=== PATIENT | male | born 1965 | race Caucasian/White ===

== ENCOUNTER → 2017-01-26 | Outpatient (CLI) | payer MEDICAID ==
[~2017-01-26] MED LIST: TRAM50TA2 PO
--- NOTE | 2017-01-26 16:33 | Diagnostic Imaging Report ---
PROCEDURE: MRI right joint lower extremity without contrast. TECHNIQUE: Multiplanar, multisequence MR imaging of the right knee was performed without contrast. COMPARISON: None available. INDICATION: Knee pain. Prior trauma of the femur. FINDINGS: MENISCI Lateral meniscus: Complex tearing of the lateral meniscus with absence of the free edge and central one-third of the majority of the posterior horn and body. There is also likely an incomplete radial tear at the junction of the posterior horn and body. The residual lateral meniscus is extruded into the lateral gutter. Medial meniscus: Mild degenerative free edge fraying of the body and posterior horn of the medial meniscus. LIGAMENTS ACL: Intact. PCL: Intact. MCL: Intact. LCL: The lateral collateral ligamentous complex is intact. EXTENSOR MECHANISM The extensor mechanism is intact. CARTILAGE Medial compartment: Diffuse chondral wear/thinning throughout the medial compartment with a superimposed focus of full-thickness chondromalacia in the posterior weightbearing portion of the medial femoral condyle. Lateral compartment: Diffuse full-thickness chondral loss throughout weightbearing and non-weightbearing portion of the lateral femoral condyle and opposing tibial plateau. There is underlying subchondral sclerosis and bone marrow edema on both sides of the joint. Patellofemoral compartment: Partial-thickness chondral loss in the patella. No superimposed full-thickness chondromalacia. BONE Partially imaged intramedullary fixation nail with interlocking screws in the distal femur. Allowing for artifact, no evidence of acute fracture. No osteochondral lesion or osteonecrosis. SOFT TISSUE: Moderate-sized joint effusion with mild synovitis. A tiny Carbajal's cyst is present. IMPRESSION: 1. Severe osteoarthritis in the lateral compartment with diffuse full-thickness chondromalacia throughout the weightbearing and non-weightbearing surfaces. 2. Associated degenerative macerated tearing of the body and posterior horn of the lateral meniscus. The residual body of the lateral meniscus is extruded into the lateral gutter. Additionally, there may be a free edge flap of the lateral meniscus which is flipped/displaced into the superior aspect of the lateral gutter. 3. Partial-thickness chondral loss in the medial and patellofemoral compartments. There is a focus of full-thickness chondromalacia in the posterior weightbearing surface of the medial femoral condyle. 4. Moderate-sized knee joint effusion with mild synovitis. Dictated by: Dictated on workstation # [id number]
== END ==
LOC: RAD 15:16
PROVIDERS: ATTEND Nurse Practitioner
DX: M17.11 Unilateral primary osteoarthritis, right knee (principal); S83.271A Complex tear of lateral meniscus, current injury, right knee, initial encounter; M25.461 Effusion, right knee; X58.XXXA Exposure to other specified factors, initial encounter; Y99.8 Other external cause status
CPT/HCPCS: 73721

== ENCOUNTER → 2021-10-13 | Outpatient (CLI) | payer OTHER ==
--- NOTE | 2021-10-13 10:25 | Diagnostic Imaging Report ---
INDICATION: Fall. Back pain. COMPARISON: None FINDINGS: Frontal and lateral views of the lumbar spine were obtained. Alignment and vertebral heights are maintained. There is no fracture or destructive process. Multilevel degenerative disease is noted in the lumbar spine, greatest at L5-S1. Limited views of the abdomen demonstrate nonobstructive bowel gas pattern. Note is also made of moderate calcified aortic and bilateral common iliac atherosclerosis. IMPRESSION: 1. No acute fracture or dislocation of the lumbar spine. 2. Multilevel degenerative changes. Dictated by: Dictated on workstation # [id number]
--- NOTE | 2021-10-13 10:26 | Diagnostic Imaging Report ---
INDICATION: Right hip pain. Lower back pain. COMPARISON: None. FINDINGS: AP view of the pelvis and 2 dedicated radiographic views of the right hip were obtained. There is no fracture, dislocation, bone destruction, or radiopaque foreign body. The visualized pelvic osseous structures and the SI joints demonstrate no acute fracture or dislocation. Postsurgical changes of previous ORIF of the right femur are partially included. No unexpected radiopaque foreign bodies are seen. No osteolytic process is identified. The surrounding soft tissue structures are unremarkable. IMPRESSION: 1. No acute fracture or dislocation in the pelvis or right hip. Dictated by: Dictated on workstation # [id number]
== END ==
LOC: RAD 09:17
PROVIDERS: ATTEND Family Medicine
DX: Z02.71 Encounter for disability determination (principal); M47.816 Spondylosis without myelopathy or radiculopathy, lumbar region; W19.XXXA Unspecified fall, initial encounter
CPT/HCPCS: 72100

== ENCOUNTER 2021-10-26 15:48 | Observation (INO) | payer SELFPAY ==
[~2021-10-26] VITALS: Ht 177 cm; Wt 74.8 kg
[2021-10-26] MEDS ORDERED: ASPIRIN 81 MG CHEW (CHILDREN'S ASA) PO ONE (16:00)
--- NOTE | 2021-10-26 16:07 | ED Chest Pain ---
General Stated Complaint: CHEST PAIN Source: patient Exam Limitations: no limitations History of Present Illness Date Seen by Provider: Oct 26, 2021 Time Seen by Provider: 16:00 Initial Comments To ER by private [facility] with reports of chest pain. This is been waxing and waning over the past few weeks but it awakened him from sleep few nights ago. Has had slight shortness of breath with this. He does smoke 1/2 pack of cigarettes per day. He smokes methamphetamine a few times a week. Smokes marijuana daily. He has been off of all of his medications for a few days because he left them at a friend's house. Timing/Duration: changing over time Severity/Quality: moderate Location: central Prior CP/Workup: no prior chest pain Modifying Factors: improves with antacids ASA po NATURAL FABRICATOR: No NTG SL NATURAL FABRICATOR: No Associated Symptoms: denies symptoms Allergies and Home Medications Allergies Coded Allergies: No Known Drug Allergies (Unverified , 04/11/15) Patient Home Medication List Home Medication List Reviewed: Yes Tramadol Hcl (Tramadol Hcl) 50 Mg Tablet, 50 MG PO Q4H PRN for PAIN Prescribed by: AYDEE BOWERS on 04/11/15 1726 Review of Systems Review of Systems Constitutional: see HPI EENTM: No Symptoms Reported Respiratory: No Symptoms Reported Cardiovascular: See HPI, Chest Pain Gastrointestinal: No Symptoms Reported Genitourinary: No Symptoms Reported Musculoskeletal: no symptoms reported Psychiatric/Neurological: No Symptoms Reported Endocrine: No Symptoms Reported Hematologic/Lymphatic: No Symptoms Reported Past Jbhbgeg-Wgfdbu-Ydieeq Hx Past Medical History Orthopedic Reproductive Disorders: No Family Medical History No Pertinent Family Hx Physical Exam Vital Signs Vital Signs - First Documented 10/26/21 15:52 Temp 36.6 Pulse 100 Resp 18 B/P (MAP) 159/92 (114) Pulse Ox 96 O2 Delivery Room Air Capillary Refill : Height, Weight, BMI Height: 5'10" Weight: 150lbs. oz. [id number]; BMI Method:Stated General Appearance: No Apparent Distress, WD/WN HEENT: PERRL/EOMI, TMs Normal Respiratory: No Accessory Muscle Use, No Respiratory Distress Cardiovascular: Regular Rate, Rhythm, Normal Peripheral Pulses Gastrointestinal: Normal Bowel Sounds, Non Tender, Soft Neurologic/Psychiatric: Alert, Oriented x3 Skin: Normal Color, Warm/Dry Progress/Results/Core Measures Results/Orders Lab Results Laboratory Tests Test 10/26/21 15:59 10/26/21 16:11 Range/Units White Blood Count 14.3 H 4.3-11.0 10^3/uL Red Blood Count 4.97 4.30-5.52 10^6/uL Hemoglobin 15.0 13.3-17.7 g/dL Hematocrit 45 40-54 % Mean Corpuscular Volume 91 80-99 fL Mean Corpuscular Hemoglobin 30 25-34 pg Mean Corpuscular Hemoglobin Concent 33 32-36 g/dL Red Cell Distribution Width 13.2 10.0-14.5 % Platelet Count 422 H 130-400 10^3/uL Mean Platelet Volume 9.0 9.0-12.2 fL Immature Granulocyte % (Auto) 1 % Neutrophils (%) (Auto) 75 42-75 % Lymphocytes (%) (Auto) 17 12-44 % Monocytes (%) (Auto) 7 0-12 % Eosinophils (%) (Auto) 1 0-10 % Basophils (%) (Auto) 0 0-10 % Neutrophils # (Auto) 10.6 H 1.8-7.8 10^3/uL Lymphocytes # (Auto) 2.4 1.0-4.0 10^3/uL Monocytes # (Auto) 1.0 0.0-1.0 10^3/uL Eosinophils # (Auto) 0.1 0.0-0.3 10^3/uL Basophils # (Auto) 0.1 0.0-0.1 10^3/uL Immature Granulocyte # (Auto) 0.1 0.0-0.1 10^3/uL Neutrophils % (Manual) 67 % Lymphocytes % (Manual) 20 % Monocytes % (Manual) 12 % Eosinophils % (Manual) 1 % Blood Morphology Comment NORMAL Prothrombin Time 13.3 12.2-14.7 SEC INR Comment 1.0 0.8-1.4 Activated Partial Thromboplast Time 32 24-35 SEC Sodium Level 137 135-145 MMOL/L Potassium Level 4.0 3.6-5.0 MMOL/L Chloride Level 103 98-107 MMOL/L Carbon Dioxide Level 23 21-32 MMOL/L Anion Gap 11 5-14 MMOL/L Blood Urea Nitrogen 9 7-18 MG/DL Creatinine 0.75 0.60-1.30 MG/DL Estimat Glomerular Filtration Rate 107 BUN/Creatinine Ratio 12 Glucose Level 111 H 70-105 MG/DL Calcium Level 9.3 8.5-10.1 MG/DL Corrected Calcium 9.2 8.5-10.1 MG/DL Magnesium Level 2.0 1.6-2.4 MG/DL Total Bilirubin 0.5 0.1-1.0 MG/DL Aspartate Amino Transf (AST/SGOT) 24 5-34 U/L Alanine Aminotransferase (ALT/SGPT) 33 0-55 U/L Alkaline Phosphatase 90 40-136 U/L Myoglobin 46.4 10.0-92.0 NG/ML Troponin I 2.340 *H <0.028 NG/ML B-Type Natriuretic Peptide 162.2 H <100.0 PG/ML Total Protein 8.4 H 6.4-8.2 GM/DL Albumin 4.1 3.2-4.5 GM/DL Serum Alcohol < 10 <10 MG/DL Urine Color YELLOW Urine Clarity CLEAR Urine pH 6.5 5-9 Urine Specific [place] <=1.005 1.016-1.022 Urine Protein NEGATIVE NEGATIVE Urine Glucose (UA) NEGATIVE NEGATIVE Urine Ketones NEGATIVE NEGATIVE Urine Nitrite NEGATIVE NEGATIVE Urine Bilirubin NEGATIVE NEGATIVE Urine Urobilinogen 0.2 < = 1.0 MG/DL Urine Leukocyte Esterase TRACE H NEGATIVE Urine RBC (Auto) NEGATIVE NEGATIVE Urine RBC 0-2 /HPF Urine WBC 0-2 /HPF Urine Squamous Epithelial Cells 0-2 /HPF Urine Renal Epithelial Cells NONE /HPF Urine Crystals NONE /LPF Urine Bacteria NEGATIVE /HPF Urine Casts NONE /LPF Urine Mucus NEGATIVE /LPF Urine Culture Indicated NO Urine Opiates Screen NEGATIVE NEGATIVE Urine Oxycodone Screen NEGATIVE NEGATIVE Urine Methadone Screen NEGATIVE NEGATIVE Urine Propoxyphene Screen NEGATIVE NEGATIVE Urine Barbiturates Screen NEGATIVE NEGATIVE Ur Tricyclic Antidepressants Screen NEGATIVE NEGATIVE Urine Phencyclidine Screen NEGATIVE NEGATIVE Urine Amphetamines Screen POSITIVE H NEGATIVE Urine Methamphetamines Screen POSITIVE H NEGATIVE Urine Benzodiazepines Screen NEGATIVE NEGATIVE Urine Cocaine Screen NEGATIVE NEGATIVE Urine Cannabinoids Screen POSITIVE H NEGATIVE My Orders Orders - MARTIN MYERS APRN Cbc With Automated Diff (10/26/21 15:59) Magnesium (10/26/21 15:59) Chest 1 View, Ap/Pa Only (10/26/21 15:59) Ekg Tracing (10/26/21 15:59) Comprehensive Metabolic Panel (10/26/21 15:59) Myoglobin Serum (2/9/22 15:59) Protime With Inr (10/26/21 15:59) Partial Thromboplastin Time (10/26/21 15:59) O2 (10/26/21 15:59) Monitor-Rhythm Ecg Trace Only (10/26/21 15:59) Lipid Panel (10/27/21 06:00) Ed Iv/Invasive Line Start (10/26/21 15:59) Bnp [place] (10/26/21 15:59) Troponin I [place] (10/26/21 15:59) Aspirin Chewable Tablet (Baby Aspirin Ch (10/26/21 16:00) Ua Culture If Indicated (10/26/21 16:03) Drug Screen Stat (Urine) (10/26/21 16:03) Alcohol (10/26/21 16:03) Nitroglycerin 0.4 Mg Btl 25's (Nitrostat (10/26/21 16:15) Lactated Ringers (Lr 1000 Ml Iv Solution (10/26/21 16:15) Manual Differential (10/26/21 15:59) Clopidogrel Tablet (Plavix Tablet) (10/26/21 17:15) Enoxaparin Injection (Lovenox Injectio (10/26/21 17:15) Metoprolol Succinate (Xl) Tab (Toprol Xl (10/26/21 17:15) Medications Given in ED Current Medications Medications Dose Ordered Sig/Noel Route Start Time Stop Time Status Last Admin Dose Admin Aspirin 324 mg ONCE ONCE PO 10/26/21 16:00 10/26/21 16:01 DC 10/26/21 16:36 324 MG Clopidogrel Bisulfate 300 mg ONCE ONCE PO 10/26/21 17:15 10/26/21 17:16 DC 10/26/21 17:34 300 MG Enoxaparin Sodium 70 mg ONCE ONCE SC 10/26/21 17:15 10/26/21 17:16 DC 10/26/21 17:34 70 MG Nitroglycerin 1 TAB Q 5 MIN X 3 NEEDED PRN SL 10/26/21 16:15 10/26/21 17:33 0.4 MG Vital Signs/I&O 10/26/21 15:52 Temp 36.6 Pulse 100 Resp 18 B/P (MAP) 159/92 (114) Pulse Ox 96 O2 Delivery Room Air Departure Communication (Admissions) I spoke with Dr. Borjas. He will consult. Spoke with Dr. Williamson on-call for [facility]. She will put some orders in. 1600-EKG shows sinus rhythm at 97 with a PAC, normal intervals, diffuse ST segment depression. 1703 his pain was 3 out of 10 on arrival. We gave him 2 sublingual nitroglycerin which took his pressure down from 150s over 90s to 110 over 80s. His pain was taken down to a 1 and this alleviated his shortness of breath. I spoke with Dr. Borjas for cardiology, will initiate some Lovenox treatment dose, beta-cruz, admit to hospitalist, serial troponins. Impression Primary Impression: Unstable angina Disposition: ADMITTED INPATIENT Condition: Stable Admissions Decision to Admit Reason: Admit from ER (General) Decision to Admit/Date: Oct 26, 2021 Time/Decision to Admit Time: 16:06 Departure-Patient Inst. Referrals: NO,LOCAL PHYSICIAN (PCP/Family) Primary Care Physician MARTIN MYERS APRN Oct 26, 2021 16:06
[2021-10-26 16:08] LABS: BASOPHILS # (AUTO) 0.1 10^3/uL (0.0-0.1); BASOPHILS % (AUTO) 0 % (0-10); EOSINOPHILS # (AUTO) 0.1 10^3/uL (0.0-0.3); EOSINOPHILS % (AUTO) 1 % (0-10); HEMATOCRIT 45 % (40-54); LYMPHOCYTES # (AUTO) 2.4 10^3/uL (1.0-4.0); LYMPHOCYTES % (AUTO) 17 % (12-44); MEAN CORPUSCULAR HEMOGLOBIN 30 pg (25-34); MEAN CORPUSCULAR HGB CONC 33 g/dL (32-36); MEAN CORPUSCULAR VOLUME 91 fL (80-99); MONOCYTES % (AUTO) 7 % (0-12); NEUTROPHILS # (AUTO) 10.6 10^3/uL (1.8-7.8); NEUTROPHILS % (AUTO) 75 % (42-75); PLATELET COUNT 422 10^3/uL (130-400); WHITE BLOOD COUNT 14.3 10^3/uL (4.3-11.0)
[2021-10-26] MEDS ORDERED: LACTATED RINGERS 1,000 ML IV SCH (16:15)
[2021-10-26 16:21] LABS: PROTHROMBIN TIME PATIENT 13.3 SEC (12.2-14.7)
[2021-10-26 16:22] LABS: ALBUMIN 4.1 GM/DL (3.2-4.5)
[2021-10-26 16:23] LABS: BILIRUBIN,URINE NEGATIVE (NEGATIVE); CLARITY,URINE CLEAR; COLOR,URINE YELLOW; GLUCOSE, URINE (UA) NEGATIVE (NEGATIVE); KETONES,URINE NEGATIVE (NEGATIVE); LEUKOCYTE ESTERASE ,URINE TRACE (NEGATIVE); NITRITE,URINE NEGATIVE (NEGATIVE); PH,URINE 6.5 (5-9); PROTEIN,URINE NEGATIVE (NEGATIVE)
[2021-10-26 16:24] LABS: CALCIUM 9.3 MG/DL (8.5-10.1)
[2021-10-26 16:25] LABS: TOTAL PROTEIN 8.4 GM/DL (6.4-8.2)
[2021-10-26 16:27] LABS: BILIRUBIN,TOTAL 0.5 MG/DL (0.1-1.0)
[2021-10-26 16:28] LABS: CREATININE SERUM 0.75 MG/DL (0.60-1.30)
[2021-10-26 16:31] LABS: EOSINOPHILS % (MANUAL) 1 %; LYMPHOCYTES % (MANUAL) 20 %; MONOCYTES % (MANUAL) 12 %; NEUTROPHILS % (MANUAL) 67 %; RBC MORPH NORMAL
[2021-10-26 16:32] LABS: BACTERIA,URINE NEGATIVE /HPF; RBC,URINE 0-2 /HPF; SQUAMOUS EPITHELIAL CELL,UR 0-2 /HPF; WBC,URINE 0-2 /HPF
[2021-10-26 16:34] LABS: AMPHETAMINE SCREEN, URINE POSITIVE (NEGATIVE); BARBITURATE SCREEN URINE NEGATIVE (NEGATIVE); BENZODIAZEPINES SCREEN URINE NEGATIVE (NEGATIVE); CANNABINOID SCREEN, URINE POSITIVE (NEGATIVE); COCAINE SCREEN URINE NEGATIVE (NEGATIVE); METHADONE STAT NEGATIVE (NEGATIVE); METHAMPHETAMINE SCREEN URINE S POSITIVE (NEGATIVE); OPIATE SCREEN URINE NEGATIVE (NEGATIVE); OXYCODONE STAT NEGATIVE (NEGATIVE); PROPOXYPHENE STAT NEGATIVE (NEGATIVE); TRICYCLIC ANTIDEPRESSANTS SCRE NEGATIVE (NEGATIVE)
[2021-10-26] MEDS: NITROGLYCERIN 0.4 MG SL TABS BTL 25'S SL PRN ×3 (16:37→17:33)
--- NOTE | 2021-10-26 17:00 | Diagnostic Imaging Report ---
PATIENT HISTORY: Chest pain. TECHNIQUE: Single frontal view of the chest. COMPARISON: None. FINDINGS: The lung volumes are normal. No focal consolidation is seen. No large pleural effusion or pneumothorax is seen. The cardiomediastinal silhouette is normal in size and contour. No acute osseous abnormality is seen. IMPRESSION: No acute pulmonary abnormality seen. Dictated by: Dictated on workstation # [id number]
[2021-10-26] MEDS ORDERED: ENOXAPARIN 80 MG/0.8 ML (LOVENOX) SYR SC ONE (17:15)
[2021-10-26] MEDS ORDERED: CLOPIDOGREL 300 MG (PLAVIX) TABLET PO ONE (17:15)
[2021-10-26] MEDS ORDERED: meTOproloL SUCCINATE 50 MG (TOPROL XL) TAB PO SCH (17:15)
[2021-10-26] MEDS ORDERED: ONDANSETRON 4 MG/2 ML (SDV) Z0FRAN IVP PRN (18:15)
[2021-10-26] MEDS ORDERED: morphine INJ 4 MG/ML 1 ML (VIAL/SYRINGE) IV PRN (18:15)
[2021-10-26] MEDS ORDERED: NITROGLYCERIN 0.4 MG SL TABS BTL 25'S SL PRN (18:15)
[2021-10-26 20:00] VITALS: BP 129/77
[2021-10-27] VITALS (17 sets, daily range): BP systolic 109–157; BP diastolic 58–94
[2021-10-27 05:07] LABS: BASOPHILS # (AUTO) 0.1 10^3/uL (0.0-0.1); BASOPHILS % (AUTO) 1 % (0-10); EOSINOPHILS # (AUTO) 0.2 10^3/uL (0.0-0.3); EOSINOPHILS % (AUTO) 2 % (0-10); HEMATOCRIT 42 % (40-54); HEMOGLOBIN 13.6 g/dL (13.3-17.7); LYMPHOCYTES # (AUTO) 2.5 10^3/uL (1.0-4.0); LYMPHOCYTES % (AUTO) 25 % (12-44); MEAN CORPUSCULAR HEMOGLOBIN 30 pg (25-34); MEAN CORPUSCULAR HGB CONC 33 g/dL (32-36); MEAN CORPUSCULAR VOLUME 93 fL (80-99); MEAN PLATELET VOLUME 9.2 fL (9.0-12.2); MONOCYTES # (AUTO) 0.9 10^3/uL (0.0-1.0); MONOCYTES % (AUTO) 9 % (0-12); NEUTROPHILS # (AUTO) 6.4 10^3/uL (1.8-7.8); NEUTROPHILS % (AUTO) 63 % (42-75); PLATELET COUNT 357 10^3/uL (130-400); WHITE BLOOD COUNT 10.2 10^3/uL (4.3-11.0)
[2021-10-27 05:36] LABS: ALBUMIN 3.3 GM/DL (3.2-4.5); POTASSIUM 3.8 MMOL/L (3.6-5.0)
[2021-10-27 05:37] LABS: CALCIUM 8.6 MG/DL (8.5-10.1)
[2021-10-27 05:38] LABS: TOTAL PROTEIN 6.8 GM/DL (6.4-8.2)
[2021-10-27 05:40] LABS: BILIRUBIN,TOTAL 0.5 MG/DL (0.1-1.0)
[2021-10-27 05:42] LABS: CREATININE SERUM 0.8 MG/DL (0.60-1.30)
[2021-10-27] MEDS ORDERED: NS IV 1000 ML 1,000 ML IV ONE (06:45)
[2021-10-27] MEDS ORDERED: CATHETER FLUSH 10 ML SYR IV PRN (07:00)
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
--- NOTE | 2021-10-27 08:31 | Pre-Op Note & Conscious Sedat ---
Pre-Operative Progress Note H&P Reviewed The H&P was reviewed, patient examined and no changes noted. Date H&P Reviewed: Oct 27, 2021 Time H&P Reviewed: 08:31 Pre-Op Diagnosis: Non-ST elevation myocardial infarction. Conscious Sedation Pre-Proced ASA Score 2 For ASA 3 and 4: Consider anesthesia and medical clearance. Also, for patients with a history of failed moderate sedation consider anesthesia. Airway Lungs Heart ASA score ASA 1: a normal healthy patient ASA 2: a patient with a mild systemic disease (mid diabetes, controlled hypertension, obesity ASA 3: a patient with a severe systemic disease that limits activity (angina, COPD, prior Myocardial infarction) ASA 4: a patient with an incapacitating disease that is a constant threat to life (CHF, renal failure) ASA 5: a moribund patient not expected to survive 24 hrs. (ruptured aneurysm) ASA 6: a declared brain- patient whose organs are being harvested. For emergent operations, add the letter E after the classification Mallampati Classification Grade 1 Sedation Plan Analgesia, Amnesia, Plan communicated to team members, Discussed options with patient/fam, Discussed risks with patient/fam The patient is an appropriate candidate to undergo the planned procedure, sedation, and anesthesia. The patient immediately re-assessed prior to indication. LARY NOLAN JR, MD Oct 27, 2021 08:31
[2021-10-27] MEDS ORDERED: TICAGRELOR 90 MG TABLET (BRILINTA) PO ONE (09:30)
[2021-10-27] MEDS ORDERED: fentaNYL INJ 100 MCG/2 ML AMP ONE (10:14)
[2021-10-27] MEDS ORDERED: VERAPAMIL 5 MG/2 ML (CALAN) VIAL IV ONE (10:14)
[2021-10-27] MEDS ORDERED: HEParin 1000 UNIT/ML (10ML VIAL) FOR BOLUS ONE (10:15)
[2021-10-27] MEDS ORDERED: MIDAZOLAM 5 MG/5 ML (VERSED) VIAL ONE (10:15)
[2021-10-27] MEDS ORDERED: NS IV 1000 ML 1,000 ML IV SCH (10:15)
[2021-10-27] MEDS ORDERED: NITRO DRIP 25000 MCG/D5W 250 ML IV ONE (10:15)
[2021-10-27] MEDS ORDERED: PATIENT MAY USE OWN MEDS, ALL PO SCH (10:15)
[2021-10-27] MEDS ORDERED: ASPIRIN 81 MG CHEW (CHILDREN'S ASA) ONE (10:15)
[2021-10-27] MEDS ORDERED: LIDOCAINE 1% INJ 20 ML VIAL ONE (10:16)
[2021-10-27] MEDS ORDERED: HEPARIN DRIP IV ONE (10:16)
[2021-10-27] MEDS: ASPIRIN E.C. 81 MG (ECOTRIN) TAB PO SCH (10:47)
--- NOTE | 2021-10-27 10:47 | Cardiac Cath Report ---
CARDIAC CATHETERIZATION DATE OF PROCEDURE: 10/27/2021 INDICATION: Non-ST elevation myocardial infarction. HISTORY: The patient is a 56 year old male with no previously known history of coronary artery disease. He presented to the hospital with a 4-5 day history of chest discomfort. His initial troponin level was mildly elevated but there was no evidence of ST elevation on his myocardial infarction. He was treated with aspirin, therapeutic dosing of enoxaparin and beta-cruz and admitted to the hospital. His chest discomfort resolved. However, overnight, the troponin level became further elevated. Therefore, he is now referred for urgent cardiac catheterization. PROCEDURES PERFORMED: 1. Left heart catheterization with hemodynamic measurements. 2. Diagnostic [place] coronary angiography. 3. Drug-eluting stent placement from the ostium down to the mid right coronary artery with 1 stent. This was the ischemia related vessel for the acute, non-ST elevation myocardial infarction. PROCEDURE DESCRIPTION: After informed consent and in the fasting state, left heart catheterization was performed through the right radial artery utilizing a 6 Algerian system by percutaneous approach. Standard 5 Algerian Elyse catheters were utilized for the diagnostic portion of the procedure. A 6 Algerian JR4 guide catheter was utilized for the percutaneous coronary intervention. All catheters were exchanged over a guidewire. Following the procedure, a vascular band was applied to the radial artery access site and the sheath was removed with good hemostasis. RESULTS: HEMODYNAMICS: The aortic pressure was 111/66 mmHg. The left ventricular pressure was 112/0 mmHg with a left ventricular end-diastolic pressure of 12 mmHg. There was no significant pressure gradient upon pullback across the aortic valve. CORONARY ANGIOGRAPHY: The coronary arteries were diffusely calcified. Left main coronary artery: Short but free of significant disease. Left anterior descending coronary artery: There was a long 50% stenosis in the mid portion of the vessel with DANIELLE-3 flow. Left circumflex coronary artery: There was a 70% stenosis in the ostium with DANIELLE-3 flow. Ramus intermedius branch: There was a ramus intermedius branch which contained a 99% stenosis in its midportion with DANIELLE-1 flow. However, this was a small vessel measuring approximately 2 mm in maximal diameter. Right coronary artery: Dominant and there was an 80% stenosis in the ostium followed by a 99% stenosis in the midsegment and then 2 sequential 50% stenoses in the distal segment with DANIELLE-1 flow beyond the lesion in the mid segment. This was most likely be ischemia related vessel for the acute myocardial infarction. PERCUTANEOUS CORONARY INTERVENTION: Percutaneous coronary intervention was carried out from the ostium down to the mid right coronary artery through a 6 Algerian [place] 4 guide catheter. The lesions for first successfully crossed with a [place] guidewire. I subsequently performed angioplasty with a 3 x 12 mm Trek balloon up to a pressure of 12 jonny for multiple inflations. There was still a significant amount of stenosis in both the ostium and the mid segment. As such, I then performed Cutting Balloon angioplasty from the mid segment back to the ostium with a 3 x 10 mm Frannie cutting balloon up to a pressure of 8 jonny. I subsequently deployed a 3.5 x 38 mm drug-eluting Skypoint stent from the ostium down to the mid segment of the right coronary artery at a pressure of 18 jonny. I subsequently postdilated the entire stent with a 3.5 x 20 mm noncompliant trek balloon at a pressure of 20 jonny. Following stent placement, there was 0% residual stenosis with DANIELLE-3 flow. IMPRESSION: 1. Normal left heart pressures. 2. Moderate to severe three-vessel coronary artery disease as outlined above b ut the left main and proximal left anterior descending coronary arteries are spared. 3. Status post drug-eluting stent placement from the ostium down to the mid right coronary artery with a 3.5 x 38 mm Skypoint stent postdilated with a 3.5 mm noncompliant balloon with 0% residual stenosis and DANIELLE-3 flow. 4. The patient is known to have normal left ventricular systolic function with an estimated ejection fraction of 55-60% by echocardiogram obtained earlier today. Certain portions of this document may have been dictated utilizing voice recognition technology. Inherent to this technology, typographical and grammatical errors may exist. As much as I am diligent to identify and correct these mistakes, some errors may remain in the document. LARY NOLAN JR, MD Oct 27, 2021 10:47
[2021-10-27] MEDS: ACETAMINOPHEN 500 MG TAB (TYLENOL) PO PRN (12:20)
[2021-10-27] MEDS ORDERED: MIRT-69 PO ×2 (15:01)
[2021-10-27] MEDS ORDERED: NAPR-915 PO ×2 (15:01)
[2021-10-27] MEDS ORDERED: DULO30CA49 PO ×2 (15:01)
--- NOTE | 2021-10-27 16:17 | History & Physical ---
HPI History of Present Illness: 56 yo M that presented with chest pain. States that the pain has been coming and going for the last few weeks. 2 nights ago it woke him up when he was sleeping. Denies ever having any similar episodes. Does no take any other medications at this time. Source: patient Exam Limitations: no limitations Date seen by provider: Oct 27, 2021 Time Seen by Provider: 09:00 Attending Physician Kaitlynn Williamson MD PCP No,Local Physician Consult Date of Admission Oct 26, 2021 at 17:57 Home Medications Home Medications Reviewed patient Home Medication Reconciliation performed by pharmacy medication reconciliations electrical and instrument technician and/or nursing. Patients Allergies have been reviewed. Allergies Coded Allergies: No Known Drug Allergies (Unverified , 04/11/15) [id number] Hx Patient Social History Smoking Status: Current Everyday Smoker Alcohol Use?: No Substance type: Methamphetamine, Marijuana Tobacco type used: Cigarettes Have you traveled recently?: No Immunizations Up To Date Influenza Vaccine Up-to-Date: No; Not Current First/Initial COVID19 Vaccinat: NONE Family Medical History Significant Family History: No Pertinent Family Hx Review of Systems ([facility]) Constitutional: no symptoms reported; No chills, No fever, No weakness EENTM: no symptoms reported; No nose pain, No throat pain Respiratory: no symptoms reported; No dyspnea on exertion, No short of breath Cardiovascular: no symptoms reported; No chest pain, No edema, No palpitations Gastrointestinal: no symptoms reported; No abdominal pain, No constipation, No diarrhea, No nausea, No vomiting Genitourinary: no symptoms reported; No dysuria, No frequency, No hematuria Musculoskeletal: no symptoms reported; No back pain, No joint pain Skin: no symptoms reported Psychiatric/Neurological: No Symptoms Reported Reviewed Test Results Reviewed Test Results Lab Laboratory Tests Test 10/26/21 21:16 10/27/21 04:55 Range/Units Troponin I 3.791 *H <0.028 NG/ML White Blood Count 10.2 4.3-11.0 10^3/uL Red Blood Count 4.52 4.30-5.52 10^6/uL Hemoglobin 13.6 13.3-17.7 g/dL Hematocrit 42 40-54 % Mean Corpuscular Volume 93 80-99 fL Mean Corpuscular Hemoglobin 30 25-34 pg Mean Corpuscular Hemoglobin Concent 33 32-36 g/dL Red Cell Distribution Width 13.3 10.0-14.5 % Platelet Count 357 130-400 10^3/uL Mean Platelet Volume 9.2 9.0-12.2 fL Immature Granulocyte % (Auto) 0 % Neutrophils (%) (Auto) 63 42-75 % Lymphocytes (%) (Auto) 25 12-44 % Monocytes (%) (Auto) 9 0-12 % Eosinophils (%) (Auto) 2 0-10 % Basophils (%) (Auto) 1 0-10 % Neutrophils # (Auto) 6.4 1.8-7.8 10^3/uL Lymphocytes # (Auto) 2.5 1.0-4.0 10^3/uL Monocytes # (Auto) 0.9 0.0-1.0 10^3/uL Eosinophils # (Auto) 0.2 0.0-0.3 10^3/uL Basophils # (Auto) 0.1 0.0-0.1 10^3/uL Immature Granulocyte # (Auto) 0.0 0.0-0.1 10^3/uL Sodium Level 139 135-145 MMOL/L Potassium Level 3.8 3.6-5.0 MMOL/L Chloride Level 105 98-107 MMOL/L Carbon Dioxide Level 23 21-32 MMOL/L Anion Gap 11 5-14 MMOL/L Blood Urea Nitrogen 9 7-18 MG/DL Creatinine 0.80 0.60-1.30 MG/DL Estimat Glomerular Filtration Rate 105 BUN/Creatinine Ratio 11 Glucose Level 122 H 70-105 MG/DL Calcium Level 8.6 8.5-10.1 MG/DL Corrected Calcium 9.2 8.5-10.1 MG/DL Total Bilirubin 0.5 0.1-1.0 MG/DL Aspartate Amino Transf (AST/SGOT) 25 5-34 U/L Alanine Aminotransferase (ALT/SGPT) 23 0-55 U/L Alkaline Phosphatase 77 40-136 U/L Total Protein 6.8 6.4-8.2 GM/DL Albumin 3.3 3.2-4.5 GM/DL Triglycerides Level 93 <150 MG/DL Cholesterol Level 169 < 200 MG/DL LDL Cholesterol Direct 136 H 1-129 MG/DL VLDL Cholesterol 19 5-40 MG/DL HDL Cholesterol 31 L 40-60 MG/DL Physical Exam-([facility]) Physical Exam Vital Signs VS - Last 72 Hours, by Label 10/26/21 10/26/21 10/26/21 10/26/21 15:52 18:15 19:00 19:00 Temp 36.6 Pulse 100 74 80 Resp 18 18 B/P (MAP) 159/92 (114) 134/84 Pulse Ox 96 96 98 O2 Delivery Room Air Room Air Room Air 10/26/21 10/26/21 10/26/21 10/27/21 20:00 20:00 22:49 00:00 Temp 36.5 36.6 Pulse 78 75 Resp 20 20 B/P (MAP) 129/77 (94) 111/67 (82) Pulse Ox 94 98 94 O2 Delivery Room Air Room Air Room Air 10/27/21 10/27/21 10/27/21 10/27/21 01:00 02:49 04:00 07:30 Temp 36.4 Pulse 65 76 73 Resp 18 B/P (MAP) 119/76 (90) Pulse Ox 98 93 O2 Delivery Room Air Room Air 10/27/21 10/27/21 10/27/21 10/27/21 08:00 08:00 10:25 10:40 Temp 36.5 Pulse 86 72 70 Resp 17 16 16 B/P (MAP) 121/58 (79) 113/60 (77) 116/81 (93) Pulse Ox 93 97 95 O2 Delivery Room Air Room Air Room Air Room Air 10/27/21 10/27/21 10/27/21 10/27/21 10:55 11:10 11:25 11:50 Temp 36.2 Pulse 72 70 79 86 Resp 16 16 16 18 B/P (MAP) 115/74 (88) 137/82 (100) 109/61 (77) 137/82 (100) Pulse Ox 96 98 94 95 O2 Delivery Room Air Room Air Room Air Room Air 10/27/21 10/27/21 10/27/21 10/27/21 11:55 13:00 13:25 14:25 Pulse 78 80 86 71 Resp 16 16 16 B/P (MAP) 121/68 (85) 123/73 (90) 117/68 (84) Pulse Ox 94 99 98 O2 Delivery Room Air Room Air Room Air 10/27/21 15:25 Pulse 86 Resp 16 B/P (MAP) 132/82 (99) Pulse Ox 95 O2 Delivery Room Air Capillary Refill : Less Than 3 Seconds General Appearance: WD/WN, no apparent distress HEENT: PERRL/EOMI Neck: non-tender, full range of motion, supple Respiratory: chest non-tender, lungs clear, normal breath sounds, no respiratory distress, no accessory muscle use Cardiovascular: normal peripheral pulses, regular rate, rhythm, no edema, no murmur Gastrointestinal: normal bowel sounds, non tender, soft Back: no CVA tenderness, no vertebral tenderness Extremities: normal range of motion, non-tender, normal inspection, no pedal edema, no calf tenderness, normal capillary refill Neurologic/Psychiatric: survey compiler II-XII nml as tested, no motor/sensory deficits, alert, normal mood/affect, oriented x 3 Skin: normal color, warm/dry Lymphatic: no adenopathy Assessment/Plan Assessment/Plan Admission Status: Observation (1) Non-ST elevation myocardial infarction (NSTEMI), initial care episode Status: Acute Assessment & Plan: - Cardiology consulted and managing, to petroleum laboratory technician today and had 1 stent placed (2) Unstable angina Status: Acute (3) Mixed hyperlipidemia Status: Chronic Assessment & Plan: - Started on Statin Clinical Quality Measures AMI/AHF: ASA po Prior to arrival: No KAITLYNN WILLIAMSON MD Oct 27, 2021 16:17
[2021-10-27] MEDS ORDERED: ISOSORBIDE MONONITRATE 30 MG (IMDUR) TAB PO NR (16:30)
[2021-10-27] MEDS: CATHETER FLUSH 10 ML SYR IV SCH ×2 (16:42→22:07)
[2021-10-27] MEDS: TICAGRELOR 90 MG TABLET (BRILINTA) PO SCH (19:45)
[2021-10-27] MEDS ORDERED: ROSUVASTATIN 20 MG (CRESTOR) TABLET PO SCH (21:00)
[2021-10-28 04:07] VITALS: BP 105/76
[2021-10-28 04:47] LABS: HEMATOCRIT 39 % (40-54); HEMOGLOBIN 12.8 g/dL (13.3-17.7); MEAN CORPUSCULAR HEMOGLOBIN 30 pg (25-34); MEAN CORPUSCULAR HGB CONC 33 g/dL (32-36); MEAN CORPUSCULAR VOLUME 91 fL (80-99); PLATELET COUNT 354 10^3/uL (130-400); WHITE BLOOD COUNT 11.9 10^3/uL (4.3-11.0)
[2021-10-28 04:59] LABS: POTASSIUM 4.1 MMOL/L (3.6-5.0)
[2021-10-28 05:00] LABS: CALCIUM 8.5 MG/DL (8.5-10.1)
[2021-10-28 05:05] LABS: CREATININE SERUM 0.73 MG/DL (0.60-1.30)
[2021-10-28] MEDS: CATHETER FLUSH 10 ML SYR IV SCH (05:15)
[2021-10-28] MEDS: ACETAMINOPHEN 500 MG TAB (TYLENOL) PO PRN (06:04)
[2021-10-28 07:39] VITALS: BP 128/70
[2021-10-28] MEDS: ASPIRIN E.C. 81 MG (ECOTRIN) TAB PO SCH (08:02)
[2021-10-28] MEDS: TICAGRELOR 90 MG TABLET (BRILINTA) PO SCH (08:02)
[2021-10-28] MEDS ORDERED: ISOSORBIDE MONONITRATE 30 MG (IMDUR) TAB PO SCH (09:00)
[2021-10-28] MEDS ORDERED: ROSU20TA32 PO ×2 (09:03)
[2021-10-28] MEDS ORDERED: TICA90TA PO ×2 (09:03)
[2021-10-28] MEDS ORDERED: CARV6.252 PO ×2 (09:05)
[2021-10-28] MEDS ORDERED: ISOS30TA82 PO ×2 (09:05)
[2021-10-28] MEDS ORDERED: NITR0.4T42 SL ×2 (09:05)
[2021-10-28] MEDS ORDERED: ASPI-1238 PO ×2 (09:05)
--- NOTE | 2021-10-28 09:15 | Cardiology Progress Note ---
Progress Note-Cardiology Events since last exam Date Seen by Provider: Oct 28, 2021 Time Seen by Provider: 09:14 Events since last exam I am following him due to non-ST elevation myocardial infarction that was tr eated with 1 drug-eluting stent to the right coronary artery. He denies any further chest discomfort. He denies dyspnea, palpitations, syncope, or ankle edema. Certain portions of this document may have been dictated utilizing voice recognition technology. Inherent to this technology, typographical and grammatical errors may exist. As much as I am diligent to identify and correct these mistakes, some errors may remain in the document. Vitals Last set of Vitals Signs Vital Signs 10/28/21 10:56 Temp 37.1 Pulse 92 Resp 18 B/P (MAP) 128/70 Pulse Ox 94 O2 Delivery Room Air Labs Labs Laboratory Tests 10/28/21 04:35 Exam Vital Signs Vital Signs Date Time Temp Pulse Resp B/P (MAP) Pulse Ox O2 Delivery O2 Flow Rate FiO2 10/28/21 10:56 37.1 92 18 128/70 94 Room Air Physical Exam General: Alert. No acute distress. Eye: No xanthelasma. HENT: Normocephalic. Neck: Jugular venous pressure does not appear elevated. Respiratory: Lungs are clear to auscultation. Respirations are non-labored. Breath sounds are equal. Symmetrical chest wall expansion. Cardiovascular: Normal rate. Regular rhythm. No murmur. No gallop. No edema. Gastrointestinal: Soft. Normal bowel sounds. Skin: Warm. Dry. Neurologic: Alert and oriented to person, place, time. Cranial nerves 3-11 grossly intact. Psychiatric: Cooperative. Appropriate mood & affect. Labs Laboratory Tests Test 10/28/21 04:35 Range/Units White Blood Count 11.9 H 4.3-11.0 10^3/uL Red Blood Count 4.30 4.30-5.52 10^6/uL Hemoglobin 12.8 L 13.3-17.7 g/dL Hematocrit 39 L 40-54 % Mean Corpuscular Volume 91 80-99 fL Mean Corpuscular Hemoglobin 30 25-34 pg Mean Corpuscular Hemoglobin Concent 33 32-36 g/dL Red Cell Distribution Width 13.3 10.0-14.5 % Platelet Count 354 130-400 10^3/uL Mean Platelet Volume 9.0 9.0-12.2 fL Sodium Level 137 135-145 MMOL/L Potassium Level 4.1 3.6-5.0 MMOL/L Chloride Level 107 98-107 MMOL/L Carbon Dioxide Level 20 L 21-32 MMOL/L Anion Gap 10 5-14 MMOL/L Blood Urea Nitrogen 10 7-18 MG/DL Creatinine 0.73 0.60-1.30 MG/DL Estimat Glomerular Filtration Rate 107 BUN/Creatinine Ratio 14 Glucose Level 118 H 70-105 MG/DL Calcium Level 8.5 8.5-10.1 MG/DL Diagnosis/Problems Diagnosis/Problems (1) Non-ST elevation myocardial infarction (NSTEMI), initial care episode Status: Acute Assessment & Plan: He suffered a non-ST elevation myocardial infarction that may have started on Sunday a few days prior to admission. He underwent urgent cardiac catheterization that showed significant stenosis of the ostium and mid right coronary artery that was treated with 1 long drug-eluting stent. He has been started on ticagrelor. He should continue on aspirin, beta-cruz and statin medication. From a cardiac standpoint, he can be discharged home today. I gave him a coupon card for 30 days of free Brilinta. If the medication is too expensive to pay for it on his own after this 30 free days, then I will change him over to clopidogrel as an outpatient. He should continue on dual antiplatelet therapy for a minimum of 1 year's time in light of the myocardial infarction. I stressed to him the importance of making his follow-up appointments. I will also see if we can get him enrolled in cardiac rehab following discharge. (2) Mixed hyperlipidemia Status: Chronic Assessment & Plan: I recommend he continue intensive dose statin medication. I will plan on a follow-up lipid panel in 2-3 months after discharge. (3) Methamphetamine abuse Assessment & Plan: Unclear whether or not this may have contributed to the acute myocardial infarction. This certainly is plausible. Fortunately, he has a normal ejection fraction but did have significant coronary calcification at a young age. This may be related to the amphetamine abuse and cigarette smoking. He was counseled about cessation. (4) Cigarette smoker Assessment & Plan: Cigarette smoking cessation was strongly advised. The patient was counseled in this regard. LARY NOLAN JR, MD Oct 28, 2021 09:15
--- NOTE | 2021-10-28 10:01 | Discharge Summary ---
Diagnosis/Chief Complaint Date of Admission Oct 26, 2021 at 17:57 Date of Discharge Discharge Diagnosis Problems/Diagnosis: (1) Non-ST elevation myocardial infarction (NSTEMI), initial care episode Assessment & Plan: - Cardiology consulted and managing, to computer lab para professional today and had 1 stent placed Status: Acute (2) Unstable angina Status: Acute (3) Mixed hyperlipidemia Assessment & Plan: - Started on Statin Status: Chronic Chief Complaint/HPI Chief Complaint/HPI 56 yo M that presented with chest pain. States that the pain has been coming and going for the last few weeks. 2 nights ago it woke him up when he was sleeping. Denies ever having any similar episodes. Does no take any other medications at this time. Discharge Summary-Simple/Stand Consultations Discharge Physical Examination Allergies: Coded Allergies: No Known Drug Allergies (Unverified , 04/11/15) Vitals & I&Os Vital Sign - Last 12Hours Date Time Temp Pulse Resp B/P (MAP) Pulse Ox O2 Delivery O2 Flow Rate FiO2 10/28/21 08:00 Room Air 10/28/21 07:39 37.1 92 18 128/70 (89) 94 Intake and Output 10/28/21 00:00 Intake Total 980 ml Output Total 1525 ml Balance -545 ml Hospital Course See final discharge diagnosis. Discharge Instructions to patient/family Please see electronic discharge instructions given to patient. Discharge Medications Reviewed and agree with Discharge Medication list on patient's Discharge Instruction sheet Clinical Quality Measures AMI/AHF: ASA po Prior to arrival: KAITLYNN Mitchell MD Oct 28, 2021 10:01
--- NOTE | 2021-10-28 10:02 | Discharge Summary ---
Discharge [facility] Reconcile Patient Problems Problems Reviewed?: Yes Discharge Medications New, Converted or Re-Newed RX: Transmitted to Pharmacy New Medications: Aspirin (Aspirin EC) 81 Mg Tablet.dr 81 MG PO DAILY, #90 TAB 3 Refills Carvedilol (Carvedilol) 6.25 Mg Tablet 6.25 MG PO BID, #60 TAB 11 Refills Isosorbide Mononitrate (Isosorbide Mononitrate ER) 30 Mg Tab.er.24h 30 MG PO DAILY, #30 TAB 11 Refills Nitroglycerin (Nitroglycerin) 0.4 Mg Tab.subl 0 MG SL UD PRN for CHEST PAIN (ANGINA), #25 TAB 3 Refills Rosuvastatin Calcium (Rosuvastatin Calcium) 20 Mg Tablet 20 MG PO HS, #30 TAB 11 Refills Ticagrelor (Brilinta) 90 Mg Tablet 90 MG PO BID, #60 TAB 11 Refills Continued Medications: Duloxetine HCl (Duloxetine HCl) 30 Mg Capsule.dr 30 MG PO HS, CAP Mirtazapine (Mirtazapine) 30 Mg Tablet 30 MG PO HS PRN for SLEEP, TAB Discontinued Medications: Naproxen (Naproxen) 500 Mg Tablet 500 MG PO BID WITH MEALS PRN for PAIN-MILD (1-4), TAB Patient Instructions Goal/Follow Up Appt: F/u with PCP 1-2 weeks at [facility] Patient Instructions: - discussed the importance of taking his anti platelet medication Activity & Diet Discharge Diet: Cardiac Diet Activity as Tolerated: Yes KAITLYNN BROWN MD Oct 28, 2021 10:02
[2021-10-28 10:56] VITALS: BP 128/70
== END 2021-10-28 11:25 | disposition home or self-care (01) ==
LOC: EDUNIT# 15:48 → ER 15:49 → CSD 17:57 → INTOOBSV 17:57
PROVIDERS: ADMIT Family Medicine; ATTEND Family Medicine
DX: I21.4 Non-ST elevation (NSTEMI) myocardial infarction (principal); I25.110 Atherosclerotic heart disease of native coronary artery with unstable angina pectoris; F17.210 Nicotine dependence, cigarettes, uncomplicated; E78.2 Mixed hyperlipidemia; F15.10 Other stimulant abuse, uncomplicated; F12.90 Cannabis use, unspecified, uncomplicated
CPT/HCPCS: 71045; 80048; 80053 ×2; 80061; 80306; 81000; 83735; 83874; 83880; 84484; 85007; 85025; 85027 ×2; 85610; 85730; 93005 ×3; 93041; 93306; 93458; 96360; 96372; 99284; C1725 ×3; C1874; C1887 ×3; C9606; G0378; G0480; 36415; 80320

== ENCOUNTER 2021-11-08 20:13 | Emergency (ER) | payer SELFPAY ==
[~2021-11-08] VITALS: Ht 177.8 cm; Wt 74.8 kg
[~2021-11-08 20:13] MED LIST changes: +ASPI-1238 PO; +CARV6.252 PO; +DULO30CA49 PO; +ISOS30TA82 PO; +MIRT-69 PO; +NAPR-915 PO; +NITR0.4T42 SL; +ROSU20TA32 PO; +TICA90TA PO
[2021-11-08 20:17] VITALS: BP 163/91
--- NOTE | 2021-11-08 20:26 | ED Chest Pain ---
General Chief Complaint: Chest Pain Stated Complaint: S/P STENT 10/28- CHEST PRESSURE Source: patient Exam Limitations: no limitations History of Present Illness Date Seen by Provider: Nov 08, 2021 Time Seen by Provider: 20:24 Initial Comments To ER with left-sided chest pressure that he rates a 2 out of 10. Constant since 4 PM. Continues to smoke cigarettes. Has not used methamphetamine since prior to his last visit on 10/28/2021 when he was admitted for NSTEMI, methamphetamine positive. Found to have severe three-vessel coronary disease and underwent stent placement with Dr. Borjas. He has been compliant with his baby aspirin daily and Brilinta. 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 NTG SL SILVERSMITH APPRENTICE: No Associated Symptoms: denies symptoms Allergies and Home Medications Allergies Coded Allergies: No Known Drug Allergies (Unverified , 04/11/15) Patient Home Medication List Home Medication List Reviewed: Yes Aspirin (Aspirin EC) 81 Mg Tablet.dr, 81 MG PO DAILY Prescribed by: LARY BORJAS JR, MD on 10/28/21904 Carvedilol (Carvedilol) 6.25 Mg Tablet, 6.25 MG PO BID Prescribed by: LARY BORJAS JR, MD on 10/28/21904 Duloxetine HCl (Duloxetine HCl) 30 Mg Capsule.dr, 30 MG PO HS, (Reported) Entered as Reported by: MOHIT MCKINNEY on 10/27/21 1501 Isosorbide Mononitrate (Isosorbide Mononitrate ER) 30 Mg Tab.er.24h, 30 MG PO DAILY Prescribed by: LARY BORJAS JR, MD on 10/28/21904 Mirtazapine (Mirtazapine) 30 Mg Tablet, 30 MG PO HS PRN for SLEEP, (Reported) Entered as Reported by: MOHIT MCKINNEY on 10/27/21 1501 Nitroglycerin (Nitroglycerin) 0.4 Mg Tab.subl, 0 MG SL UD PRN for CHEST PAIN (ANGINA) Prescribed by: LARY BORJAS JR, MD on 10/28/21904 Rosuvastatin Calcium (Rosuvastatin Calcium) 20 Mg Tablet, 20 MG PO HS Prescribed by: LARY BORJAS JR, MD on 10/28/21902 Ticagrelor (Brilinta) 90 Mg Tablet, 90 MG PO BID Prescribed by: LARY BORJAS JR, MD on 10/28/21902 Review of Systems Review of Systems Constitutional: see HPI EENTM: No Symptoms Reported Respiratory: No Symptoms Reported Cardiovascular: See HPI, Chest Pain Gastrointestinal: No Symptoms Reported Genitourinary: No Symptoms Reported Musculoskeletal: no symptoms reported Skin: no symptoms reported Psychiatric/Neurological: No Symptoms Reported Endocrine: No Symptoms Reported Hematologic/Lymphatic: No Symptoms Reported Past Iixnkgi-Oqnhpy-Fthuyg Hx Patient Social History Tobacco Use?: Yes Tobacco type used: Cigarettes Smoking Status: Current Everyday Smoker Use of E-Cig and/or Vaping dev: No Substance use?: Yes Substance type: Methamphetamine Alcohol Use?: No Pt feels they are or have been: No Immunizations Up To Date First/Initial COVID19 Vaccinat: NONE Second COVID19 Vaccination Santiago: NONE Third COVID19 Vaccination Date: NONE Past Medical History Orthopedic Reproductive Disorders: No Family Medical History No Pertinent Family Hx Physical Exam Vital Signs Vital Signs - First Documented 11/08/21 20:17 Pulse 84 Resp 25 B/P (MAP) 163/91 (115) Pulse Ox 98 O2 Delivery Room Air Capillary Refill : Height, Weight, BMI Height: 5'10" Weight: 150lbs. oz. 68.341173eh; 23.87 BMI Method:Stated General Appearance: No Apparent Distress, WD/WN, Thin (Alert and oriented no di stress very pleasant) Respiratory: No Accessory Muscle Use, No Respiratory Distress Cardiovascular: Regular Rate, Rhythm, Normal Peripheral Pulses Gastrointestinal: Normal Bowel Sounds, Non Tender, Soft Extremity: Normal Capillary Refill, Normal Inspection Neurologic/Psychiatric: Alert, Oriented x3 Skin: Normal Color, Warm/Dry Progress/Results/Core Measures Results/Orders Lab Results Laboratory Tests Test 11/08/21 20:23 11/08/21 20:46 Range/Units White Blood Count 12.2 H 4.3-11.0 10^3/uL Red Blood Count 4.53 4.30-5.52 10^6/uL Hemoglobin 13.7 13.3-17.7 g/dL Hematocrit 41 40-54 % Mean Corpuscular Volume 91 80-99 fL Mean Corpuscular Hemoglobin 30 25-34 pg Mean Corpuscular Hemoglobin Concent 33 32-36 g/dL Red Cell Distribution Width 13.3 10.0-14.5 % Platelet Count 374 130-400 10^3/uL Mean Platelet Volume 8.7 L 9.0-12.2 fL Immature Granulocyte % (Auto) 0 % Neutrophils (%) (Auto) 62 42-75 % Lymphocytes (%) (Auto) 28 12-44 % Monocytes (%) (Auto) 6 0-12 % Eosinophils (%) (Auto) 2 0-10 % Basophils (%) (Auto) 1 0-10 % Neutrophils # (Auto) 7.6 1.8-7.8 10^3/uL Lymphocytes # (Auto) 3.4 1.0-4.0 10^3/uL Monocytes # (Auto) 0.8 0.0-1.0 10^3/uL Eosinophils # (Auto) 0.3 0.0-0.3 10^3/uL Basophils # (Auto) 0.1 0.0-0.1 10^3/uL Immature Granulocyte # (Auto) 0.1 0.0-0.1 10^3/uL Prothrombin Time 13.5 12.2-14.7 SEC INR Comment 1.0 0.8-1.4 Activated Partial Thromboplast Time 29 24-35 SEC Sodium Level 140 135-145 MMOL/L Potassium Level 4.5 3.6-5.0 MMOL/L Chloride Level 106 98-107 MMOL/L Carbon Dioxide Level 24 21-32 MMOL/L Anion Gap 10 5-14 MMOL/L Blood Urea Nitrogen 15 7-18 MG/DL Creatinine 0.86 0.60-1.30 MG/DL Estimat Glomerular Filtration Rate 102 BUN/Creatinine Ratio 17 Glucose Level 100 70-105 MG/DL Calcium Level 9.0 8.5-10.1 MG/DL Corrected Calcium 9.2 8.5-10.1 MG/DL Magnesium Level 2.1 1.6-2.4 MG/DL Total Bilirubin 0.2 0.1-1.0 MG/DL Aspartate Amino Transf (AST/SGOT) 21 5-34 U/L Alanine Aminotransferase (ALT/SGPT) 35 0-55 U/L Alkaline Phosphatase 81 40-136 U/L Myoglobin 24.3 10.0-92.0 NG/ML Troponin I 0.064 H <0.028 NG/ML B-Type Natriuretic Peptide 155.1 H <100.0 PG/ML Total Protein 7.7 6.4-8.2 GM/DL Albumin 3.7 3.2-4.5 GM/DL Urine Opiates Screen NEGATIVE NEGATIVE Urine Oxycodone Screen NEGATIVE NEGATIVE Urine Methadone Screen NEGATIVE NEGATIVE Urine Propoxyphene Screen NEGATIVE NEGATIVE Urine Barbiturates Screen NEGATIVE NEGATIVE Ur Tricyclic Antidepressants Screen NEGATIVE NEGATIVE Urine Phencyclidine Screen NEGATIVE NEGATIVE Urine Amphetamines Screen POSITIVE H NEGATIVE Urine Methamphetamines Screen POSITIVE H NEGATIVE Urine Benzodiazepines Screen NEGATIVE NEGATIVE Urine Cocaine Screen NEGATIVE NEGATIVE Urine Cannabinoids Screen POSITIVE H NEGATIVE My Orders Orders - MARTIN MYERS APRN Cbc With Automated Diff (11/08/21 20:21) Magnesium (11/08/21 20:21) Chest 1 View, Ap/Pa Only (11/08/21 20:21) Ekg Tracing (11/08/21 20:21) Comprehensive Metabolic Panel (11/08/21 20:21) Myoglobin Serum (11/08/21 20:21) Protime With Inr (11/08/21 20:21) Partial Thromboplastin Time (11/08/21 20:21) O2 (11/08/21 20:21) Monitor-Rhythm Ecg Trace Only (11/08/21 20:21) Lipid Panel (11/09/21 06:00) Ed Iv/Invasive Line Start (11/08/21 20:21) Bnp [place] (11/08/21 20:21) Troponin I [place] (11/08/21 20:21) Aspirin Chewable Tablet (Baby Aspirin Ch (11/08/21 20:30) Drug Screen Stat (Urine) (11/08/21 20:22) Medications Given in ED Current Medications Medications Dose Ordered Sig/Noel Route Start Time Stop Time Status Last Admin Dose Admin Aspirin 324 mg ONCE ONCE PO 11/08/21 20:30 11/08/21 20:31 DC 11/08/21 20:28 324 MG Vital Signs/I&O 11/08/21 20:17 Pulse 84 Resp 25 B/P (MAP) 163/91 (115) Pulse Ox 98 O2 Delivery Room Air Departure Communication (Admissions) Family Conversation 2114-discussed with the patient that his troponin was improved but still high. He should be admitted for observation. He declines. States that he is homeless and needs to be out of the hospital so he can go to his [facility] appointment tomorrow. He will sign out AGAINST MEDICAL ADVICE. He was advised of the risks of leaving AGAINST MEDICAL ADVICE including permanent disability, , congestive heart failure. EKG today shows sinus rhythm at 80. His last EKG showed significant ST depression in leads V4, V5, V6. Today that has resolved. There is very minor ST depression at these locations with new T wave inversion. There is no ST segment elevation today. Impression Primary Impression: Chest pain Additional Impressions: Methamphetamine abuse CAD (coronary artery disease) Disposition: 07 AGAINST MEDICAL ADVICE Condition: Against Medical Advice Admissions Decision to Admit/Date: Nov 08, 2021 Departure-Patient Inst. Referrals: NO,LOCAL PHYSICIAN (PCP/Family) Primary Care Physician MARTIN MYERS APRN Nov 08, 2021 20:26
[2021-11-08] MEDS ORDERED: ASPIRIN 81 MG CHEW (CHILDREN'S ASA) PO ONE (20:30)
[2021-11-08 20:31] LABS: BASOPHILS # (AUTO) 0.1 10^3/uL (0.0-0.1); BASOPHILS % (AUTO) 1 % (0-10); EOSINOPHILS # (AUTO) 0.3 10^3/uL (0.0-0.3); EOSINOPHILS % (AUTO) 2 % (0-10); HEMATOCRIT 41 % (40-54); HEMOGLOBIN 13.7 g/dL (13.3-17.7); LYMPHOCYTES # (AUTO) 3.4 10^3/uL (1.0-4.0); LYMPHOCYTES % (AUTO) 28 % (12-44); MEAN CORPUSCULAR HEMOGLOBIN 30 pg (25-34); MEAN CORPUSCULAR HGB CONC 33 g/dL (32-36); MEAN CORPUSCULAR VOLUME 91 fL (80-99); MEAN PLATELET VOLUME 8.7 fL (9.0-12.2); MONOCYTES # (AUTO) 0.8 10^3/uL (0.0-1.0); MONOCYTES % (AUTO) 6 % (0-12); NEUTROPHILS # (AUTO) 7.6 10^3/uL (1.8-7.8); NEUTROPHILS % (AUTO) 62 % (42-75); PLATELET COUNT 374 10^3/uL (130-400); WHITE BLOOD COUNT 12.2 10^3/uL (4.3-11.0)
[2021-11-08 20:43] LABS: ALBUMIN 3.7 GM/DL (3.2-4.5); POTASSIUM 4.5 MMOL/L (3.6-5.0)
--- NOTE | 2021-11-08 20:43 | Diagnostic Imaging Report ---
INDICATION: Chest pain and cough. COMPARISON made with a prior study from 10/26/2021 FINDINGS: The diaphragms are flattened suggesting air trapping. There are chronic interstitial changes within the lungs. There is no new alveolar consolidation or pneumonia. There is no effusion or pneumothorax. Heart size is appropriate. Pulmonary vascularity appears normal. IMPRESSION: 1. Findings suspect for underlying COPD. No new or acute superimposed cardiopulmonary process evident. Dictated by: Dictated on workstation # [id number]
[2021-11-08 20:45] LABS: TOTAL PROTEIN 7.7 GM/DL (6.4-8.2)
[2021-11-08 20:47] LABS: BILIRUBIN,TOTAL 0.2 MG/DL (0.1-1.0)
[2021-11-08 20:49] LABS: CREATININE SERUM 0.86 MG/DL (0.60-1.30)
[2021-11-08 20:53] LABS: MAGNESIUM 2.1 MG/DL (1.6-2.4)
[2021-11-08 21:01] LABS: PROTHROMBIN TIME PATIENT 13.5 SEC (12.2-14.7)
[2021-11-08 21:06] LABS: AMPHETAMINE SCREEN, URINE POSITIVE (NEGATIVE); BARBITURATE SCREEN URINE NEGATIVE (NEGATIVE); BENZODIAZEPINES SCREEN URINE NEGATIVE (NEGATIVE); CANNABINOID SCREEN, URINE POSITIVE (NEGATIVE); COCAINE SCREEN URINE NEGATIVE (NEGATIVE); METHADONE STAT NEGATIVE (NEGATIVE); METHAMPHETAMINE SCREEN URINE S POSITIVE (NEGATIVE); OPIATE SCREEN URINE NEGATIVE (NEGATIVE); OXYCODONE STAT NEGATIVE (NEGATIVE); PROPOXYPHENE STAT NEGATIVE (NEGATIVE); TRICYCLIC ANTIDEPRESSANTS SCRE NEGATIVE (NEGATIVE)
== END 2021-11-08 21:22 | disposition left against medical advice (07) ==
LOC: EDUNIT# 20:13 → ER 20:16
DX: F15.10 Other stimulant abuse, uncomplicated (principal); I25.10 Atherosclerotic heart disease of native coronary artery without angina pectoris; F17.210 Nicotine dependence, cigarettes, uncomplicated; Z79.82 Long term (current) use of aspirin
CPT/HCPCS: 36415; 71045; 80053; 80306; 83735; 83874; 83880; 84484; 85025; 85610; 85730; 93005; 93041

== ENCOUNTER → 2021-12-15 | Outpatient (CLI) | payer SELFPAY ==
[~2021-12-15] MED LIST changes: +CATHETER FLUSH 10 ML SYR IVP PRN; +REGADENOSON 0.4 MG/5 ML SYR (LEXISCAN) IV ONE
[2021-12-15 13:31] VITALS: BP 146/84
--- NOTE | 2021-12-17 18:55 | NUCLEAR STRESS TEST ---
REGADENOSON NUCLEAR STRESS Date of procedure: 12/15/2021. Primary care provider: No local physician Admitting physician: Kem Borjas Jr., MD. INDICATION: Coronary artery disease. BASELINE ELECTROCARDIOGRAM: Sinus rhythm with nonspecific intraventricular conduction delay and inferolateral ST-T wave changes, consider ischemia STRESS TEST PROCEDURE: The patient was administered 0.4 mg of intravenous Regadenoson. The resting heart rate was 73 bpm and the peak heart rate was 96 bpm. The resting blood pressure was 146/84 mmHg and the minimum blood pressure was 104/70 mmHg. This represents a normal heart rate and a normal blood pressure response to Regadenoson. The test was stopped due to the protocol. There was no chest discomfort during the test. There were no arrhythmias during the test. There were no significant stress induced electrocardiogram changes. NUCLEAR PROCEDURE: The patient was administered 10.6 mCi of intravenous technetium 99m Tetrofosmin at rest for the rest images. The patient was subsequently administered 30.7 mCi of intravenous technetium 99m Tetrofosmin at peak stress for the stress images. Following an appropriate wait after each injection, imaging was obtained. The images were subsequently processed and reformatted in the usual views. Gated imaging was obtained. The image quality was adequate with a mild degree of gastrointestinal attenuation artifact. CT attenuation correction was used as a adjunct to standard imaging. Both the corrected and uncorrected images were reviewed for interpretation. NUCLEAR RESULTS: There was a large, severe intensity, predominantly reversible m id to distal lateral defect with a large amount of inducible ischemia with a summed stress score of 14 and a summed difference score of 10. There was normal left ventricular chamber size with an end-diastolic volume of 79 mL and an end- systolic volume of 41 mL. There was no evidence of transient ischemic dilatation. The TID ratio was 1.15. There was lateral hypokinesis with overall mild left ventricular systolic dysfunction with a calculated ejection fraction of 48%. IMPRESSION: 1. Normal heart rate and blood pressure response to regadenoson. 2. There was no chest discomfort, arrhythmias, or electrocardiogram changes during the test. 3. There was a large, severe intensity, predominantly reversible mid to distal lateral defect with a large amount of inducible ischemia with a summed stress score of 14 and a summed difference score of 10. 4. There was lateral hypokinesis with overall mild left ventricular systolic dysfunction with a calculated ejection fraction of 48%. 5. This is an abnormal study representing an overall high risk for possible future coronary ischemic events in light of the size of the defect and the left ventricular dysfunction. Certain portions of this document may have been dictated utilizing voice recognition technology. Inherent to this technology, typographical and grammatical errors may exist. As much as I am diligent to identify and correct these mistakes, some errors may remain in the document. KEM BORJAS JR, MD Dec 17, 2021 18:55
== END ==
PROVIDERS: ATTEND Internal Medicine Cardiovascular Disease
DX: I25.10 Atherosclerotic heart disease of native coronary artery without angina pectoris (principal)
CPT/HCPCS: 78452; 93017; A9502

== ENCOUNTER 2021-12-29 10:00 | Day surgery (SDC) | payer OTHER ==
[~2021-12-29] VITALS: Ht 177.8 cm; Wt 76.3 kg
[2021-12-29] VITALS (13 sets, daily range): BP systolic 125–154; BP diastolic 68–91
[~2021-12-29 10:00] MED LIST changes: +ASPIRIN 81 MG CHEW (CHILDREN'S ASA) PO ONE; +CATHETER FLUSH 10 ML SYR IV PRN; -CATHETER FLUSH 10 ML SYR IVP PRN; +HEParin (CATH LAB) 2,000 ML IV ONE; +ISOS60TA63 PO; +LIDOCAINE 1% INJ 50 ML (XYLOCAINE) VIAL ONE; +NS IV 1000 ML 1,000 ML IV ONE; +NS IV 1000 ML 1,000 ML ONE; -REGADENOSON 0.4 MG/5 ML SYR (LEXISCAN) IV ONE; +SERT-413 PO; +SERT-414 PO
[2021-12-29] MEDS ORDERED: NITRO DRIP 25000 MCG/D5W 250 ML IV ONE (10:19)
[2021-12-29] MEDS ORDERED: VERAPAMIL 5 MG/2 ML (CALAN) VIAL IV ONE (10:19)
[2021-12-29] MEDS ORDERED: MIDAZOLAM 5 MG/5 ML (VERSED) VIAL ONE (10:19)
[2021-12-29] MEDS ORDERED: HEParin 1000 UNIT/ML (10ML VIAL) FOR BOLUS ONE (10:19)
[2021-12-29] MEDS ORDERED: fentaNYL INJ 100 MCG/2 ML AMP ONE (10:19)
--- NOTE | 2021-12-29 10:46 | Consultation-Cardiology ---
HPI-Cardiology Cardiology Consultation: Date of Consultation 12/29/21 Date of Admission 12/29/21 Attending Physician Lary Borjas Jr, MD Admitting Physician No,Local Physician Consulting Physician LARY BORJAS JR, MD HPI: Time Seen by a Provider: 10:40 Chief Complaint: THIS IS A HISTORY AND PHYSICAL EXAMINATION FOR OUTPATIENT CARDIAC CATHETERIZATION I had the pleasure of seeing Perry in the cardiac catheterization laboratory holding area at [facility] in [place], [place] this morning. He has a history of coronary artery disease with a non-ST elevation myocardial infarction in October 2021 treated with 1 drug-eluting stent from the ostium down to the mid right coronary artery with moderate-severe disease elsewhere, hypertension, hyperlipidemia, Because of his cardiac history and some ongoing chest discomfort, I had him undergo an outpatient nuclear stress test on 12/15/2021 and this showed a large, predominantly reversible lateral defect with a large amount of inducible ischemia. As such, he is now referred for further evaluation with a cardiac catheterization. He has been having some ongoing intermittent chest discomfort despite treatment with both beta-cruz and long-acting nitrates. He has had some intermittent dyspnea on exertion but denies paroxysmal nocturnal dyspnea, orthopnea, palpitations, lightheadedness, syncope, or ankle edema. Certain portions of this document may have been dictated utilizing voice recognition technology. Inherent to this technology, typographical and grammatical errors may exist. As much as I am diligent to identify and correct these mistakes, some errors may remain in the document. Review of Systems-Cardiology Review of Systems Other comments Review of 10 organ systems is as per the history of present illness, otherwise negative. NJG-[id number]-Kgxnfx Hx Patient Social History Smoking Status: Current Everyday Smoker Past Medical History PMH As described under Assessment. Family Medical History Family Medical History: The patient does not know of any family history of premature coronary artery disease in first-degree relatives. Allergies and Home Medications Allergies Coded Allergies: No Known Drug Allergies (Unverified , 04/11/15) Patient Home Medication List Home Medication List Reviewed: Yes Aspirin (Aspirin EC) 81 Mg Tablet.dr, 81 MG PO DAILY Prescribed by: LARY BORJAS JR, MD on 10/28/21 0905 Last Action: Reviewed Carvedilol (Carvedilol) 6.25 Mg Tablet, 6.25 MG PO BID Prescribed by: LARY BORJAS JR, MD on 10/28/21904 Last Action: Reviewed Isosorbide Mononitrate (Isosorbide Mononitrate ER) 60 Mg Tab, 60 MG PO DAILY, (Reported) Entered as Reported by: RADHA VASQUEZ on 12/29/21848 Last Action: Reviewed Mirtazapine (Mirtazapine) 30 Mg Tablet, 30 MG PO HS PRN for SLEEP, (Reported) Entered as Reported by: MOHIT MCKINNEY on 10/27/211500 Last Action: Reviewed Nitroglycerin (Nitroglycerin) 0.4 Mg Tab.subl, 0 MG SL UD PRN for CHEST PAIN (ANGINA) Prescribed by: LARY BORJAS JR, MD on 10/28/21904 Last Action: Reviewed Rosuvastatin Calcium (Rosuvastatin Calcium) 20 Mg Tablet, 20 MG PO HS Prescribed by: LARY BORJAS JR, MD on 10/28/21902 Last Action: Reviewed Sertraline HCl (Sertraline HCl) 50 Mg Tablet, 50 MG PO HS, (Reported) Entered as Reported by: RADHA VASQUEZ on 12/29/21848 Last Action: Reviewed Sertraline HCl (Sertraline HCl) 100 Mg Tablet, 100 MG PO HS, (Reported) Entered as Reported by: RADHA VASQUEZ on 12/29/21848 Last Action: Reviewed Ticagrelor (Brilinta) 90 Mg Tablet, 90 MG PO BID Prescribed by: LARY BORJAS JR, MD on 10/28/21902 Last Action: Reviewed Discontinued Medications Duloxetine HCl (Duloxetine HCl) 30 Mg Capsule.dr, 30 MG PO HS, (Reported) Discontinued Reason: No Longer Taking Entered as Reported by: MOHIT MCKINNEY on 10/27/211500 Last Action: Discontinued Isosorbide Mononitrate (Isosorbide Mononitrate ER) 30 Mg Tab.er.24h, 30 MG PO DAILY Discontinued Reason: Duplicate Order Prescribed by: LARY BORJAS JR, MD on 10/28/21904 Last Action: Discontinued Exam Vital Signs Vital Signs Date Time Temp Pulse Resp B/P (MAP) Pulse Ox O2 Delivery O2 Flow Rate FiO2 12/29/21 08:31 74 20 125/81 (96) 96 Room Air Physical Exam General: Alert. No acute distress. Well nourished and appears stated age. Eye: Extraocular movements are intact. Conjunctivae are clear. There are no xanthelasma. HENT: Normocephalic. Atraumatic. Carotid pulsations 2/2 without bruits. Neck: Jugular venous pressure does not appear elevated. No thyromegaly appreciated. Respiratory: Lungs are clear to auscultation. Respirations are non-labored. Breath sounds are equal. Symmetrical chest wall expansion. Cardiovascular: Normal rate. Regular rhythm. No murmur. No gallop. Point of maxi mal impulse is not appear displaced. Good pulses equal in all extremities. No edema. Gastrointestinal: Soft. Normal bowel sounds. Skin: Skin turgor is normal. There is no pallor. Musculoskeletal: No kyphosis or scoliosis appreciated. Neurologic: Alert and oriented to person, place, time. Cranial nerves 3-12 appear grossly intact. The patient has good motor tone strength in the upper and lower extremities bilaterally. Psychiatric: Cooperative. Appropriate mood & affect. Radiology REGADENOSON NUCLEAR STRESS TEST (12/15/2021): 1. Normal heart rate and blood pressure response to regadenoson. 2. There was no chest discomfort, arrhythmias, or electrocardiogram changes during the test. 3. There was a large, severe intensity, predominantly reversible mid to distal lateral defect with a large amount of inducible ischemia with a summed stress score of 14 and a summed difference score of 10. 4. There was lateral hypokinesis with overall mild left ventricular systolic dysfunction with a calculated ejection fraction of 48%. 5. This is an abnormal study representing an overall high risk for possible future coronary ischemic events in light of the size of the defect and the left ventricular dysfunction. ELECTROCARDIOGRAM (11/15/2021): Sinus rhythm with right atrial abnormality, early transition and inferolateral ST-T wave changes, consider ischemia. CHEST 1 VIEW (11/08/2021): 1. Findings suspect for underlying COPD. No new or acute superimposed cardiopulmonary process evident. LABS (11/08/2021): Sodium 140. Potassium 4.5. BUN 15. Creatinine 0.86. GFR 102. Glucose 100. Liver function tests normal. Hemoglobin 13.7. Platelets 374,000. BNP 155.1. ELECTROCARDIOGRAM (11/08/2021): Sinus rhythm with inferolateral ST-T wave changes, consider ischemia. ELECTROCARDIOGRAM (10/28/2021): Sinus rhythm with inferior and anterior ST changes, consider ischemia. CARDIAC CATHETERIZATION AND PERCUTANEOUS CORONARY INTERVENTION (10/27/2021): 1. Normal left heart pressures. 2. Moderate to severe three-vessel coronary artery disease as outlined above but the left main and proximal left anterior descending coronary arteries are spared. 3. Status post drug-eluting stent placement from the ostium down to the mid right coronary artery with a 3.5 x 38 mm Skypoint stent postdilated with a 3.5 mm noncompliant balloon with 0% residual stenosis and DANIELLE-3 flow. 4. The patient is known to have normal left ventricular systolic function with an estimated ejection fraction of 55-60% by echocardiogram obtained earlier today. ECHOCARDIOGRAM (10/27/2021): 1. Normal left ventricular chamber size, wall thickness and systolic function with an estimated ejection fraction of 55-60% with no regional wall motion abnormalities identified. 2. Doppler parameters are consistent with grade 1 diastolic dysfunction. 3. There is mild aortic valve sclerosis. 4. The estimated pulmonary artery systolic pressure is 33 mmHg assuming a right atrial pressure of 5 mmHg. ELECTROCARDIOGRAM (10/27/2021): Sinus rhythm with anterolateral ST changes, consider ischemia. SINGLE VIEW CHEST X-RAY (10/26/2021): 1. No acute pulmonary abnormality seen. LABS (10/26/2021): WBC 14.3. Hemoglobin 15. Platelets 422,000. Troponin 3.791. ELECTROCARDIOGRAM (10/26/2021): Sinus rhythm with premature supraventricular complexes, biatrial abnormality and inferolateral repolarization abnormality, consider ischemia. Diagnosis/Problems Diagnosis/Problems (1) Coronary artery disease involving [place] coronary artery with angina pectoris Assessment & Plan: In light of ongoing anginal quality chest discomfort despite 2 antianginal medications as well as a severely abnormal stress test, he is here today for outpatient cardiac catheterization. The benefits and risks of the procedure were explained to the patient and he is in agreement to proceed. We will continue the current guideline directed medical therapy. (2) Mixed hyperlipidemia Status: Chronic Assessment & Plan: Continue intensive dose statin medication in light of the previous myocardial infarction. (3) Cigarette smoker Assessment & Plan: He needs to quit smoking. (4) History of methamphetamine abuse Assessment & Plan: He reports that he has refrain from the use of methamphetamine. Ongoing abstinence was recommended. LARY BORJAS JR, MD Dec 29, 2021 10:46
--- NOTE | 2021-12-29 11:22 | Pre-Op Note & Conscious Sedat ---
Pre-Operative Progress Note H&P Reviewed The H&P was reviewed, patient examined and no changes noted. Date H&P Reviewed: Dec 29, 2021 Time H&P Reviewed: 11:18 Pre-Op Diagnosis: Coronary artery disease with angina pectoris Conscious Sedation Pre-Proced ASA Score 2 For ASA 3 and 4: Consider anesthesia and medical clearance. Also, for patients with a history of failed moderate sedation consider anesthesia. Airway Lungs Heart ASA score ASA 1: a normal healthy patient ASA 2: a patient with a mild systemic disease (mid diabetes, controlled hypertension, obesity ASA 3: a patient with a severe systemic disease that limits activity (angina, COPD, prior Myocardial infarction) ASA 4: a patient with an incapacitating disease that is a constant threat to life (CHF, renal failure) ASA 5: a moribund patient not expected to survive 24 hrs. (ruptured aneurysm) ASA 6: a declared brain- patient whose organs are being harvested. For emergent operations, add the letter E after the classification Mallampati Classification Grade 2 Sedation Plan Analgesia, Amnesia, Plan communicated to team members, Discussed options with patient/fam, Discussed risks with patient/fam The patient is an appropriate candidate to undergo the planned procedure, sedation, and anesthesia. The patient immediately re-assessed prior to indication. LARY NOLAN JR, MD Dec 29, 2021 11:22
[2021-12-29] MEDS ORDERED: NS IV 1000 ML 1,000 ML IV SCH (12:30)
--- NOTE | 2021-12-29 12:35 | Cardiac Cath Report ---
CARDIAC CATHETERIZATION DATE OF PROCEDURE: 12/29/2021 INDICATION: Coronary artery disease with angina pectoris. HISTORY: The patient is a 56 year old male with a known history of coronary artery disease who had a non-ST elevation myocardial infarction in October 2021 due to severe disease of the right coronary artery that was treated with 1 drug- eluting stent to the ostium down to the mid segment. He has residual disease in the left circumflex coronary artery. He underwent a nuclear stress test about 2 weeks ago that showed a large, predominantly reversible lateral defect. He has had some ongoing chest discomfort. As such, he is now referred for further evaluation with a cardiac catheterization and possible percutaneous coronary intervention. PROCEDURES PERFORMED: 1. Left heart catheterization with hemodynamic measurements. 2. Diagnostic [place] coronary angiography. 3. Attempted percutaneous coronary intervention of first obtuse marginal branch (left circumflex coronary artery). PROCEDURE DESCRIPTION: After informed consent and in the fasting state, left heart catheterization was performed through the right radial artery utilizing a 6 [place] system by percutaneous approach. A 5 [place] JR4 catheter was utilized to interrogate the right coronary artery and left ventricle. A 6 [place] CLS 3.5 guide catheter was utilized to interrogate the left coronary artery and for the attempted percutaneous coronary intervention. All catheters were exchanged over a guidewire. Following the procedure, a vascular band was applied to the radial artery access site and the sheath was removed with good hemostasis. RESULTS: HEMODYNAMICS: The aortic pressure was 82/47 mmHg. The left ventricular pressure was 95/0 mmHg with a left ventricular end-diastolic pressure of 15 mmHg. There was no significant pressure gradient upon pullback across aortic valve. CORONARY ANGIOGRAPHY: Left main coronary artery: Short and free of significant disease. Left anterior descending coronary artery: There was a 40% stenosis proximally and a 50% stenosis in the distal segment with DANIELLE-3 flow. Left circumflex coronary artery: There was a 70% stenosis in the ostium with DANIELLE-3 flow. There was a small first obtuse marginal branch which was totally occluded in its mid segment with DANIELLE 0 flow. This was a branch that was subtotally occluded during his prior procedure and the vessel which I thought was causing his current anginal symptoms. Right coronary artery: Dominant. There was a stent extending from the ostium down to the mid segment which was widely patent. There were 2 sequential 70% stenosis in the distal segment with the more distal stenosis being just proximal to the bifurcation and there was DANIELLE-2 flow. ATTEMPTED PERCUTANEOUS CORONARY INTERVENTION: Percutaneous coronary intervention was attempted on the first obtuse marginal branch through a 6 [place] CLS 3.5 guide catheter. I attempted to cross the stenosis with a Whisper medium support guidewire. However, after about 10 minutes of manipulating this wire, I determined that this had probably now become a chronic total occlusion and the procedure was aborted. No balloons were inflated in the vessel. IMPRESSION: 1. Borderline low systemic blood pressure with elevated left ventricular end- diastolic pressure. 2. Patent stent from the ostium down to the mid segment of the dominant right coronary artery however, there were 2 severe stenoses distal to the stent as outlined above. 3. Total occlusion of the first obtuse marginal branch. Intervention was at tempted but the lesion could not be crossed with a wire. 4. There is severe disease of the ostium of the left circumflex coronary artery. This could potentially be approached percutaneously but may need surgical backup which we do not have in our hospital. 5. The patient is known to have mild left ventricular systolic dysfunction with a calculated ejection fraction of 48% by nuclear stress test performed on 12/15/2021. Certain portions of this document may have been dictated utilizing voice recognition technology. Inherent to this technology, typographical and grammatical errors may exist. As much as I am diligent to identify and correct these mistakes, some errors may remain in the document. LARY NOLAN JR, MD Dec 29, 2021 12:35
== END 2021-12-29 17:52 | disposition home or self-care (01) ==
LOC: CATH 10:00 → CSD 12:44 → CATH 17:52
PROVIDERS: ATTEND Internal Medicine Cardiovascular Disease
DX: I25.119 Atherosclerotic heart disease of native coronary artery with unspecified angina pectoris (principal); I21.4 Non-ST elevation (NSTEMI) myocardial infarction; I10 Essential (primary) hypertension; E78.5 Hyperlipidemia, unspecified; F17.200 Nicotine dependence, unspecified, uncomplicated; Z79.899 Other long term (current) drug therapy
CPT/HCPCS: 85347; 87081; 92920; 93458; C1769; C1887; C1894

== ENCOUNTER 2022-05-05 02:52 | Emergency (ER) | payer OTHER ==
[~2022-05-05 02:52] MED LIST changes: -ASPIRIN 81 MG CHEW (CHILDREN'S ASA) PO ONE; -CATHETER FLUSH 10 ML SYR IV PRN; -HEParin (CATH LAB) 2,000 ML IV ONE; -LIDOCAINE 1% INJ 50 ML (XYLOCAINE) VIAL ONE; -NS IV 1000 ML 1,000 ML IV ONE; -NS IV 1000 ML 1,000 ML ONE
[2022-05-05 03:05] VITALS: BP 162/101
--- NOTE | 2022-05-05 03:15 | ED Integumentary General ---
General Chief Complaint: Skin/Wound Problems Stated Complaint: LEFT ANKLE PAIN Source: patient Exam Limitations: no limitations History of Present Illness Date Seen by Provider: May 05, 2022 Time Seen by Provider: 03:00 Initial Comments Patient to ER by private conveyance with chief complaint last day he is noted some painful little nodules on the medial portion of his left lower leg. He has an abrasion that has opened up from his shoe tongue rubbing against the anterior ankle on his left ankle. He is on Plavix but not on a blood thinner. He is not having any chest pain or shortness of air. No history of blood clots. He has a history of coronary disease with stents. Allergies and Home Medications Allergies Coded Allergies: No Known Drug Allergies (Unverified , 04/11/15) Patient Home Medication List Home Medication List Reviewed: Yes Aspirin (Aspirin EC) 81 Mg Tablet.dr, 81 MG PO DAILY Prescribed by: LARY ONLAN JR, MD on 10/28/21 09 Carvedilol (Carvedilol) 6.25 Mg Tablet, 6.25 MG PO BID Prescribed by: LARY NOLAN JR, MD on 10/28/21904 Cephalexin (Cephalexin) 500 Mg Tablet, 500 MG PO QID Prescribed by: NISHA GRANADO on 05/05/22 0316 Isosorbide Mononitrate (Isosorbide Mononitrate ER) 60 Mg Tab, 60 MG PO DAILY, (Reported) Entered as Reported by: RAHDA VASQUEZ on 12/29/21 0849 Mirtazapine (Mirtazapine) 30 Mg Tablet, 30 MG PO HS PRN for SLEEP, (Reported) Entered as Reported by: MOHIT MCKINNEY on 10/27/21 1501 Nitroglycerin (Nitroglycerin) 0.4 Mg Tab.subl, 0 MG SL UD PRN for CHEST PAIN (ANGINA) Prescribed by: LARY NOLAN JR, MD on 10/28/21 09 Rosuvastatin Calcium (Rosuvastatin Calcium) 20 Mg Tablet, 20 MG PO HS Prescribed by: LARY NOLAN JR, MD on 10/28/21 09 Sertraline HCl (Sertraline HCl) 50 Mg Tablet, 50 MG PO HS, (Reported) Entered as Reported by: RADHA VASQUEZ on 12/29/21 0849 Sertraline HCl (Sertraline HCl) 100 Mg Tablet, 100 MG PO HS, (Reported) Entered as Reported by: RADHA VASQUEZ on 12/29/21 0849 Ticagrelor (Brilinta) 90 Mg Tablet, 90 MG PO BID Prescribed by: LARY NOLAN JR, MD on 10/28/21 0903 Review of Systems Review of Systems Constitutional: No chills, No diaphoresis EENTM: No ear discharge, No ear pain Respiratory: No cough, No short of breath Cardiovascular: No chest pain, No edema Gastrointestinal: No abdominal pain, No nausea, No vomiting Genitourinary: No discharge, No dysuria All Other Systems Reviewed Negative Unless Noted: Yes Past Gmzoinp-Mwxvcr-Tbxnzu Hx Patient Social History Tobacco Use?: No Substance use?: No Alcohol Use?: No Pt feels they are or have been: No Immunizations Up To Date Influenza Vaccine Up-to-Date: No; Not Current First/Initial COVID19 Vaccinat: NONE Second COVID19 Vaccination Santiago: NONE Third COVID19 Vaccination Date: NONE Past Medical History Orthopedic COPD Currently Using CPAP: No Heart Attack, High Cholesterol, Hypertension Reproductive Disorders: No Family Medical History No Pertinent Family Hx Physical Exam Vital Signs Vital Signs - First Documented 05/05/22 03:05 Temp 36.7 Pulse 94 Resp 18 B/P (MAP) 162/101 (121) Pulse Ox 95 Capillary Refill : General Appearance: WD/WN, no apparent distress HEENT: PERRL/EOMI, pharynx normal Neck: full range of motion, normal inspection Cardiovascular: normal peripheral pulses, regular rate, rhythm Respiratory: no respiratory distress, no accessory muscle use Skin: other (Dried abrasion on the anterior left ankle with some surrounding induration and erythema and associated erythematous nodules proximal to this wound that are tender to palpation. No calf tenderness or tightness. Negative Homans' sign.) Progress/Results/Core Measures Results/Orders Vital Signs/I&O 05/05/22 03:05 Temp 36.7 Pulse 94 Resp 18 B/P (MAP) 162/101 (121) Pulse Ox 95 Progress Progress Note : Time: 03:10 Progress Note Set up for an outpatient ultrasound and start him on antibiotics as this appears to be cellulitis. Departure Impression Primary Impression: Cellulitis of left ankle Additional Impression: Suspected DVT (deep vein thrombosis) Disposition: 01 HOME, SELF-CARE Condition: Stable Departure-Patient Inst. Decision time for Depature: 03:10 Referrals: MOHIT SAL DO (PCP/Family) Primary Care Physician Patient Instructions: Cellulitis (Skin Infection), Adult ED Add. Discharge Instructions: Start taking the Keflex, antibiotic 4 times a day for the next week to help heal up the cellulitis in your left ankle. Come back to the outpatient center at 730 to 8:00 in the morning or call the number on the top of the order form for an appointment to get an ultrasound done. They will send the results over to the ER doc who will advise you before you leave. All discharge instructions reviewed with patient and/or family. Voiced understanding. Scripts Cephalexin (Cephalexin) 500 Mg Tablet 500 MG PO QID for 7 Days, #28 TAB 0 Refills Prov: NISHA GRANADO 05/05/22 NISHA GRANADO May 05, 2022 03:15
[2022-05-05] MEDS ORDERED: CEPH500T PO (03:16)
== END 2022-05-05 03:22 | disposition home or self-care (01) ==
LOC: EDUNIT# 02:52 → ER 02:57
DX: L03.116 Cellulitis of left lower limb (principal); I25.10 Atherosclerotic heart disease of native coronary artery without angina pectoris; Z86.74 Personal history of sudden cardiac arrest; Z28.310 Unvaccinated for COVID-19; Z79.02 Long term (current) use of antithrombotics/antiplatelets
CPT/HCPCS: 99281

== ENCOUNTER 2022-05-21 22:29 | Emergency (ER) | payer OTHER ==
[~2022-05-21] VITALS: Ht 178 cm; Wt 77.1 kg
[~2022-05-21 22:29] MED LIST changes: +CEPH500T PO
[2022-05-21] MEDS ORDERED: LIDOCAINE 1% INJ 20 ML VIAL IJ ONE (23:15)
[2022-05-21] MEDS ORDERED: RX-TRIMETH/SULFA. 160-800 MG (BACTRIM DS) TAB PPK#2 PO STA (23:26)
[2022-05-21] MEDS ORDERED: SULF1TAB38 PO (23:29)
--- NOTE | 2022-05-21 23:29 | ED Upper Extremity ---
General Chief Complaint: Foreign Body Stated Complaint: FISH HOOK IN RIGHT HAND Nursing Triage Note: Pt ambulates to [facility] with reports of fishing hook in right index finger. Pt reports fishing at around 2100 tonight, got fishing hook stuck, then went to a friend's house where they cut the bulk of the hook off, pt brought the rest of the hook with him. Allergies and Home Medications Allergies Coded Allergies: No Known Drug Allergies (Unverified , 04/11/15) Patient Home Medication List Aspirin (Aspirin EC) 81 Mg Tablet.dr, 81 MG PO DAILY Prescribed by: LARY NOLAN JR, MD on 10/28/21904 Carvedilol (Carvedilol) 6.25 Mg Tablet, 6.25 MG PO BID Prescribed by: LARY NOLAN JR, MD on 10/28/21904 Cephalexin (Cephalexin) 500 Mg Tablet, 500 MG PO QID Prescribed by: NISHA GRANADO on 05/05/22 0316 Isosorbide Mononitrate (Isosorbide Mononitrate ER) 60 Mg Tab, 60 MG PO DAILY, (Reported) Entered as Reported by: RADHA VASQUEZ on 12/29/21848 Mirtazapine (Mirtazapine) 30 Mg Tablet, 30 MG PO HS PRN for SLEEP, (Reported) Entered as Reported by: MOHIT MCKINNEY on 10/27/21 1501 Nitroglycerin (Nitroglycerin) 0.4 Mg Tab.subl, 0 MG SL UD PRN for CHEST PAIN (ANGINA) Prescribed by: LARY NOLAN JR, MD on 10/28/21904 Rosuvastatin Calcium (Rosuvastatin Calcium) 20 Mg Tablet, 20 MG PO HS Prescribed by: LARY NOLAN JR, MD on 10/28/21902 Sertraline HCl (Sertraline HCl) 50 Mg Tablet, 50 MG PO HS, (Reported) Entered as Reported by: RADHA VASQUEZ on 12/29/21848 Sertraline HCl (Sertraline HCl) 100 Mg Tablet, 100 MG PO HS, (Reported) Entered as Reported by: RADHA VASQUEZ on 12/29/21848 Ticagrelor (Brilinta) 90 Mg Tablet, 90 MG PO BID Prescribed by: LARY NOLAN JR, MD on 10/28/21902 Past Htpskia-Qzyfhx-Vaiheh Hx Patient Social History Tobacco Use?: Yes Tobacco type used: Cigars Smoking Status: Current Everyday Smoker Substance use?: Yes Substance type: Methamphetamine, Marijuana Alcohol Use?: No Pt feels they are or have been: No Immunizations Up To Date First/Initial COVID19 Vaccinat: NONE Second COVID19 Vaccination [place]: NONE Third COVID19 Vaccination Date: NONE Past Medical History Orthopedic COPD Currently Using CPAP: No Heart Attack, High Cholesterol, Hypertension Reproductive Disorders: No Family Medical History No Pertinent Family Hx Physical Exam Vital Signs Vital Signs - First Documented 05/21/22 22:48 Temp 36.1 Pulse 86 Resp 20 B/P (MAP) 172/98 (122) Pulse Ox 97 O2 Delivery Room Air Capillary Refill : Height, Weight, BMI Height: 5'10" Weight: 150lbs. oz. 68.188610lg; 24.00 BMI Method:Stated Progress/Results/Core Measures Results/Orders My Orders Orders - AZEEM HENRY DO Lidocaine 1% Inj 20 Ml (Xylocaine 1% Inj (05/21/22 23:15) Tdap (Boostrix) Im (05/21/22 23:30) Wound Dressing-Ed (05/21/22 23:26) Rx-Trimeth/Sulfameth Ds Tab (Rx-Bactrim/ (05/21/22 23:26) Vital Signs/I&O 05/21/22 22:48 Temp 36.1 Pulse 86 Resp 20 B/P (MAP) 172/98 (122) Pulse Ox 97 O2 Delivery Room Air Blood Pressure Mean: 122 Departure Impression Primary Impression: FISH HOOK REMOVAL FROM RIGHT MIDDLE FINGER Additional Impression: Pvwlqjownc-qoqciudgs-bdoetbm (DPT) vaccination administered at current visit Disposition: 01 HOME, SELF-CARE Condition: Stable Departure-Patient Inst. Decision time for Depature: 23:27 Referrals: MOHIT SAL DO (PCP/Family) Primary Care Physician Patient Instructions: Diphtheria and Tetanus Toxoids, and Acellular Pertussis Vaccine, Removal of Foreign Body in Skin Add. Discharge Instructions: SOAK IN WARM SOAPY WATER TWICE A DAY APPLY ANTIBIOTIC OINTMENT AND FRESH DRESSING TWICE A DAY TYLENOL AND MOTRIN NEEDED FOR PAIN FOLLOW UP WITH [facility] OR RETURN TO ER IF PROBLEMS All discharge instructions reviewed with patient and/or family. Voiced understanding. Scripts Sulfamethoxazole/Trimethoprim (Bactrim Ds Tablet) 1 Each Tablet 1 EACH PO BID, #14 TAB Prov: AZEEM HENRY DO 05/21/22 AZEEM HENRY DO May 21, 2022 23:29
[2022-05-21] MEDS ORDERED: TETANUS,DIPTH,PERTUSS P/F (BOOSTRIX) 0.5 ML VIAL IM ONE (23:30)
[2022-05-21 23:48] VITALS: BP 172/98
== END 2022-05-21 23:49 | disposition home or self-care (01) ==
LOC: EDUNIT# 22:29 → ER 22:30
DX: S60.452A Superficial foreign body of right middle finger, initial encounter (principal); F17.290 Nicotine dependence, other tobacco product, uncomplicated; Z23 Encounter for immunization; Z28.310 Unvaccinated for COVID-19; W45.8XXA Other foreign body or object entering through skin, initial encounter; Y93.89 Activity, other specified
CPT/HCPCS: 90715; 99284

== ENCOUNTER 2022-07-05 23:04 | Emergency (ER) | payer MEDICAID, OTHER ==
[~2022-07-05] VITALS: Ht 178 cm; Wt 77.1 kg
[~2022-07-05 23:04] MED LIST changes: +SULF1TAB38 PO
[2022-07-05 23:15] LABS: BASOPHILS # (AUTO) 0.1 10^3/uL (0.0-0.1); BASOPHILS % (AUTO) 1 % (0-10); EOSINOPHILS # (AUTO) 0.2 10^3/uL (0.0-0.3); EOSINOPHILS % (AUTO) 1 % (0-10); HEMATOCRIT 47 % (40-54); HEMOGLOBIN 15.9 g/dL (13.3-17.7); LYMPHOCYTES # (AUTO) 2.9 10^3/uL (1.0-4.0); LYMPHOCYTES % (AUTO) 27 % (12-44); MEAN CORPUSCULAR HEMOGLOBIN 30 pg (25-34); MEAN CORPUSCULAR HGB CONC 34 g/dL (32-36); MEAN CORPUSCULAR VOLUME 88 fL (80-99); MEAN PLATELET VOLUME 8.9 fL (9.0-12.2); MONOCYTES # (AUTO) 0.7 10^3/uL (0.0-1.0); MONOCYTES % (AUTO) 7 % (0-12); NEUTROPHILS # (AUTO) 7.1 10^3/uL (1.8-7.8); NEUTROPHILS % (AUTO) 64 % (42-75); PLATELET COUNT 316 10^3/uL (130-400); WHITE BLOOD COUNT 11.1 10^3/uL (4.3-11.0)
[2022-07-05 23:25] LABS: ALBUMIN 4.1 GM/DL (3.2-4.5); POTASSIUM 4.7 MMOL/L (3.6-5.0)
[2022-07-05] MEDS ORDERED: NITROGLYCERIN 2% OINT 1 GM UNIT DOSE PACKET TOP STA (23:25)
[2022-07-05 23:26] LABS: CALCIUM 9.3 MG/DL (8.5-10.1)
[2022-07-05 23:28] LABS: PROTHROMBIN TIME PATIENT 13.2 SEC (12.2-14.7); TOTAL PROTEIN 7.8 GM/DL (6.4-8.2)
[2022-07-05 23:29] LABS: BILIRUBIN,TOTAL 0.3 MG/DL (0.1-1.0)
[2022-07-05] MEDS ORDERED: LABETALOL HCL 20 MG/4 ML VIAL IV ONE (23:30)
[2022-07-05 23:31] LABS: CREATININE SERUM 0.85 MG/DL (0.60-1.30)
[2022-07-05 23:34] LABS: MAGNESIUM 2.2 MG/DL (1.6-2.4)
[2022-07-05 23:42] LABS: CREATINE KINASE MB 0.6 NG/ML (<6.6)
--- NOTE | 2022-07-05 23:53 | ED Chest Pain ---
General Chief Complaint: Chest Wall Stated Complaint: CP Nursing Triage Note: c/o left chest wall pain radiating to left arm x3 days. 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 FINNEGAN AT [facility] [place] PT IS SUPPOSED TO BE ON MULTIPLE MEDICATIONS AND STATES HE HAS NOT HAD HIS MEDICATION ""FOR 3 DAYS" DEPUTY BRINGS IN MEDICATION SHEETS--PT DID HAVE SOME OF HIS PM MEDICATIONS ON 07/04/22. HAS NOT HAD ANY OF IS AM MEDICATIONS, AND TONIGHT HE ONLY HAD BUSPIRONE AND CARVEDILOL. PT IS SUPPOSED TO BE TAKING: -ASPIRIN 81 MG 1 DAILY--HAD ONE DOSE ON 07/04/22--AT 1600 PM -SYMBICORT INHALER 2 PUFFS TWICE DAILY--ONE DOSE AT 1900 ON 07/04/22 -BUSPIRONE 30 MG 1 PILL TWICE DAILY--ONE DOSE AT 1900 ON 07/04/22 AND ONE DOSE AT 1900 ON 07/05/22 -CARVEDILOL 6.25 MG 1 PILL TWICE DAILY--ONE DOSE AT 1900 ON 07/04/22 AND ONE DOSE AT 1900 ON 07/05/22 -NTG SL PRN--HAD 1 PILL AT 1624 ON 07/04/22 AND 1 PILL AT 1632 ON 07/05/22 -ISOSORBIDE MONOMITRATE 60 MG 1 TABLET EACH MORNING--HAD 1 DOSE AT 1630 ON 07/04/22 -CLOPIDOGREL 75 MG 1 TABLET EACH MORNING-HAD 1 PILL AT 1630 ON 07/04/22 -SERTRALINE 100 MG 2 TABLETS EACH MORNING--HAS NOT HAD ANY -ALBUTEROL INHALER PRN--HAS NOT HAD ANY PT DID HAVE WORSENING OF PAIN SINCE 2100 TONIGHT PT WAS GIVEN NTG X1 AT 1632 TONIGHT. EMS GAVE ZOFRAN 4 MG AND FENTANYL 50 MCG, AND 1/2" NITROPASTE BP WAS 177/103 FOR EMS. PT HAS LONGSTANDING DRUG ABUSE, STATES HE LAST USED METH AND MARIJUANA 3 DAYS AGO--STATES HE SMOKED THEM PT DOES HAVE HISTORY OF IV DRUG USE, BUT CLAIMS NO RECENT IV USE. PT HAS SMOKED > 2 PPD OF CIGARETTES AT TIMES, NOW 1/2-1 PPD HAS HISTORY OF ALCOHOL ABUSE, CLAIMS NONE FOR 20 YEARS. PCP: [facility] BOWL TOPPER: DR. NOLAN Allergies and Home Medications Allergies Coded Allergies: No Known Drug Allergies (Unverified , 04/11/15) Patient Home Medication List Home Medication List Reviewed: Yes Aspirin (Aspirin EC) 81 Mg Tablet.dr, 81 MG PO DAILY Prescribed by: LARY NOLAN JR, MD on 10/28/21 09 Carvedilol (Carvedilol) 6.25 Mg Tablet, 6.25 MG PO BID Prescribed by: LARY NOLAN JR, MD on 10/28/21 09 Cephalexin (Cephalexin) 500 Mg Tablet, 500 MG PO QID Prescribed by: NISHA GRANADO on 05/05/22 0316 Isosorbide Mononitrate (Isosorbide Mononitrate ER) 60 Mg Tab, 60 MG PO DAILY, (Reported) Entered as Reported by: RADHA VASQUEZ on 12/29/21 0849 Mirtazapine (Mirtazapine) 30 Mg Tablet, 30 MG PO HS PRN for SLEEP, (Reported) Entered as Reported by: MOHIT MCKINENY on 10/27/21 1501 Nitroglycerin (Nitroglycerin) 0.4 Mg Tab.subl, 0 MG SL UD PRN for CHEST PAIN (ANGINA) Prescribed by: LARY NOLAN JR, MD on 10/28/21 09 Rosuvastatin Calcium (Rosuvastatin Calcium) 20 Mg Tablet, 20 MG PO HS Prescribed by: LARY NOLAN JR, MD on 10/28/21 09 Sertraline HCl (Sertraline HCl) 50 Mg Tablet, 50 MG PO HS, (Reported) Entered as Reported by: RADHA VASQUEZ on 12/29/21 0849 Sertraline HCl (Sertraline HCl) 100 Mg Tablet, 100 MG PO HS, (Reported) Entered as Reported by: RADHA VASQUEZ on 12/29/21 0849 Sulfamethoxazole/Trimethoprim (Bactrim Ds Tablet) 1 Each Tablet, 1 EACH PO BID Prescribed by: AZEEM HENRY on 05/21/22 2329 Ticagrelor (Brilinta) 90 Mg Tablet, 90 MG PO BID Prescribed by: LARY NOLAN JR, MD on 10/28/21 0903 Review of Systems Review of Systems Constitutional: no symptoms reported; No diaphoresis, No dizziness EENTM: No Symptoms Reported Respiratory: See HPI, Shortness of Air Cardiovascular: See HPI, Chest Pain; Denies Edema, Denies Irregular Heart Rate, Denies Lightheadedness, Denies Palpitations, Denies Syncope Gastrointestinal: See HPI; Denies Abdominal Pain; Nausea; Denies Vomiting Genitourinary: No Symptoms Reported Musculoskeletal: see HPI Skin: no symptoms reported Psychiatric/Neurological: No Symptoms Reported Endocrine: No Symptoms Reported Hematologic/Lymphatic: No Symptoms Reported Past Yctizgg-Gdblul-Sgtiac Hx Patient Social History Tobacco Use?: Yes Tobacco type used: Cigars, Cigarettes Smoking Status: Current Everyday Smoker Substance use?: Yes Substance type: Methamphetamine, Marijuana Substance frequency: Daily Alcohol Use?: Yes Pt feels they are or have been: No Immunizations Up To Date Tetanus Booster (TDap): Unknown First/Initial COVID19 Vaccinat: NONE Second COVID19 Vaccination [place]: NONE Third COVID19 Vaccination Date: NONE Past Medical History Surgery/Hospitalization HX: cardiac stents, mi, high cholesterol, depression, asthma Surgeries: Yes Cardiac, Coronary Stent, Orthopedic Respiratory: Yes COPD Currently Using CPAP: No Cardiac: Yes (STENTS X 3) Coronary Artery Disease, Heart Attack, High Cholesterol, Hypertension Neurological: No Reproductive Disorders: No Genitourinary: No Gastrointestinal: No Musculoskeletal: Yes (CHRONIC RIGHT KNEE PAIN--ARRIVES WEARING A HINGED BRACE) Endocrine: No HEENT: No Cancer: No Psychosocial: Yes (POLYSUBSTANCE ABUSE) Integumentary: No Blood Disorders: No Family Medical History No Pertinent Family Hx SOCIAL HISTORY: -SMOKES 2 PPD AT TIMES, CURRENTLY 1/2-1 PPD -ETOH--HISTORY OF ABUSE/HEAVY USE--CLAIMS NONE FOR 20 YEARS, PER PT ON 07/05/22 -DRUGS--CURRENTLY SMOKES METH AND MARIJUANA; HAS HISTORY OF IV DRUG USE. PAST SURGICAL HISTORY: -CARDIAC CATH WITH STENTS X 3 Physical Exam Vital Signs Vital Signs - First Documented 07/05/22 23:04 Temp 36.7 Pulse 85 Resp 16 B/P (MAP) 196/86 (122) Pulse Ox 97 O2 Delivery Room Air Capillary Refill : Less Than 3 Seconds Height, Weight, BMI Height: 5'10" Weight: 150lbs. oz. 68.915365pa; 24.00 BMI Method:Stated General Appearance: No Apparent Distress, WD/WN HEENT: PERRL/EOMI Neck: Full Range of Motion, Normal Inspection, Non Tender, Supple Respiratory: Normal Breath Sounds, No Accessory Muscle Use, No Respiratory Distress Cardiovascular: Regular Rate, Rhythm, No Murmur Gastrointestinal: Non Tender, Soft Extremity: Normal Inspection Neurologic/Psychiatric: Alert, Oriented x3, No Motor/Sensory Deficits, Normal Mood/Affect, physicist solid state II-XII Norm as Tested Skin: Normal Color, Warm/Dry, Tattoos/Piercings (MULTIPLE TATTOOS) Progress/Results/Core Measures Results/Orders Lab Results Laboratory Tests Test 07/05/22 23:09 Range/Units White Blood Count 11.1 H 4.3-11.0 10^3/uL Red Blood Count 5.34 4.30-5.52 10^6/uL Hemoglobin 15.9 13.3-17.7 g/dL Hematocrit 47 40-54 % Mean Corpuscular Volume 88 80-99 fL Mean Corpuscular Hemoglobin 30 25-34 pg Mean Corpuscular Hemoglobin Concent 34 32-36 g/dL Red Cell Distribution Width 14.6 H 10.0-14.5 % Platelet Count 316 130-400 10^3/uL Mean Platelet Volume 8.9 L 9.0-12.2 fL Immature Granulocyte % (Auto) 1 % Neutrophils (%) (Auto) 64 42-75 % Lymphocytes (%) (Auto) 27 12-44 % Monocytes (%) (Auto) 7 0-12 % Eosinophils (%) (Auto) 1 0-10 % Basophils (%) (Auto) 1 0-10 % Neutrophils # (Auto) 7.1 1.8-7.8 10^3/uL Lymphocytes # (Auto) 2.9 1.0-4.0 10^3/uL Monocytes # (Auto) 0.7 0.0-1.0 10^3/uL Eosinophils # (Auto) 0.2 0.0-0.3 10^3/uL Basophils # (Auto) 0.1 0.0-0.1 10^3/uL Immature Granulocyte # (Auto) 0.1 0.0-0.1 10^3/uL Prothrombin Time 13.2 12.2-14.7 SEC INR Comment 1.0 0.8-1.4 Activated Partial Thromboplast Time 27 24-35 SEC D-Dimer 0.35 0.00-0.49 UG/ML Sodium Level 138 135-145 MMOL/L Potassium Level 4.7 3.6-5.0 MMOL/L Chloride Level 103 98-107 MMOL/L Carbon Dioxide Level 25 21-32 MMOL/L Anion Gap 10 5-14 MMOL/L Blood Urea Nitrogen 15 7-18 MG/DL Creatinine 0.85 0.60-1.30 MG/DL Estimat Glomerular Filtration Rate 102 BUN/Creatinine Ratio 18 Glucose Level 114 H 70-105 MG/DL Calcium Level 9.3 8.5-10.1 MG/DL Corrected Calcium 9.2 8.5-10.1 MG/DL Magnesium Level 2.2 1.6-2.4 MG/DL Total Bilirubin 0.3 0.1-1.0 MG/DL Aspartate Amino Transf (AST/SGOT) 20 5-34 U/L Alanine Aminotransferase (ALT/SGPT) 37 0-55 U/L Alkaline Phosphatase 81 40-136 U/L Total Creatine Kinase 35 30-200 U/L Creatine Kinase MB 0.6 <6.6 NG/ML Myoglobin 16.9 10.0-92.0 NG/ML Troponin I < 0.028 <0.028 NG/ML B-Type Natriuretic Peptide 38.1 <100.0 PG/ML Total Protein 7.8 6.4-8.2 GM/DL Albumin 4.1 3.2-4.5 GM/DL Amylase Level 49 25-125 U/L Lipase 20 8-78 U/L My Orders Orders - AZEEM HENRY DO Chest 1 View, Ap/Pa Only (07/05/22 23:05) Ekg Tracing (07/05/22 23:05) Cbc With Automated Diff (07/05/22 23:05) Magnesium (07/05/22 23:05) Comprehensive Metabolic Panel (07/05/22 23:05) Myoglobin Serum (07/05/22 23:05) Protime With Inr (07/05/22:05) Partial Thromboplastin Time (07/05/22 23:05) O2 (07/05/22 23:05) Monitor-Rhythm Ecg Trace Only (07/05/22 23:05) Ed Iv/Invasive Line Start (07/05/22 23:05) Creatine Kinase (07/05/22:05) Creatine Kinase Mb (07/05/22:05) Lipase (07/05/22:05) Amylase (07/05/22 23:05) Bnp [place] (07/05/22:05) Fibrin Degradation Products (07/05/22:05) Troponin I [place] (07/05/22 23:05) Labetalol Injection (Normodyne Injection (07/05/22 23:30) Nitroglycerin Ointment (Nitrobid Ointme (07/05/22 23:25) Clopidogrel Tablet (Plavix Tablet) (07/06/22 00:00) Medications Given in ED Current Medications Medications Dose Ordered Sig/Noel Route Start Time Stop Time Status Last Admin Dose Admin Clopidogrel Bisulfate 75 mg ONCE ONCE PO 07/06/22 00:00 07/06/22 00:01 DC 07/06/22 00:05 75 MG Labetalol HCl 20 mg ONCE ONCE IV 07/05/22 23:30 07/05/22 23:31 DC 07/05/22 23:30 20 MG Vital Signs/I&O 07/05/22 07/06/22 23:04 00:03 Temp 36.7 Pulse 85 70 Resp 16 16 B/P (MAP) 196/86 (122) 140/95 Pulse Ox 97 95 O2 Delivery Room Air Room Air Blood Pressure Mean: 122 Progress Progress Note : Progress Note GIVEN 1" NITROPASTE AND LABETALOL PAIN FREE, AND BP DOWN TO 140/95 Initial ECG Impression Date: Jul 05, 2022 Initial ECG Impression Time: 23:09 Initial ECG Rate: 86 Initial ECG Rhythm: Normal Sinus Initial ECG Impression: Nonspecific Changes Diagnostic Imaging Comments CXR--NO ACUTE PROCESS, PENDING RADIOLOGIST REVIEW Reviewed: Reviewed by Me Departure Impression Primary Impression: Chest pain Additional Impressions: HTN (hypertension) HX OF CAD WITH STENTS Disposition: 21 DIS/X[address]/LAW [facility]NF[place] Condition: Improved Departure-Patient Inst. Decision time for Depature: 23:50 Referrals: MOHIT SAL DO (PCP) Primary Care Physician Patient Instructions: High Blood Pressure ED, DASH Diet, Chest Pain (DC) Add. Discharge Instructions: DO NOT MISS DOSES OF YOUR MEDICATIONS FOLLOW UP WITH YOUR BOWL TOPPER SCHEDULED RETURN TO ER IF SYMPTOMS WORSEN All discharge instructions reviewed with patient and/or family. Voiced understanding. AZEEM HENRY DO Jul 05, 2022 23:53
[2022-07-06] MEDS ORDERED: CLOPIDOGREL 75 MG (PLAVIX) TABLET PO ONE
[2022-07-06 00:03] VITALS: BP 140/95
--- NOTE | 2022-07-06 08:27 | Diagnostic Imaging Report ---
Indication: Respiratory distress Compared to 11/08/2021 FINDINGS: Air trapping and COPD chronic. Some prominence of interstitial lung markings chronic. No acute consolidation, edema, pneumonia, effusion, pneumothorax or failure pattern. Impression: Stable chronic findings. Dictated by: Dictated on workstation # [id number]
== END 2022-07-06 00:05 ==
LOC: EDUNIT# 23:04 → ER 23:05
DX: I10 Essential (primary) hypertension (principal); I25.10 Atherosclerotic heart disease of native coronary artery without angina pectoris; I25.2 Old myocardial infarction; F17.210 Nicotine dependence, cigarettes, uncomplicated; Z95.5 Presence of coronary angioplasty implant and graft; Z79.82 Long term (current) use of aspirin
CPT/HCPCS: 36415; 71045; 80053; 82150; 82550; 82553; 83690; 83735; 83874; 83880; 84484; 85025; 85379; 85610; 85730; 93005; 93041